=== PATIENT | female | born 1950 | race Hispanic/Latino ===

== ENCOUNTER 2018-07-06 14:47 | Inpatient (IN) | payer OTHER ==
[2018-07-06] MEDS ORDERED: NA CHLORIDE 0.9% 2,000 ML ONE (15:47)
[2018-07-06] MEDS ORDERED: FENTANYL CITR 100 MCG/2 ML ONE ×3 (15:47→21:02)
[2018-07-06] MEDS ORDERED: ONDANSETRON 4 MG/2 ML VIAL ONE ×2 (15:47→17:20)
[2018-07-06 16:34] LABS: Absolute Lymphocytes (CBC) 0.6 K/uL (0.7-4.9); Absolute Monocytes 0.7 K/uL (0.1-1.3); Absolute Neutrophil 9.6 K/uL (1.8-8.0); Basophils % 0.3 % (0-1.3); Eosinophils % 0.4 % (0-4.4); Hematocrit 51.3 % (36.0-45.0); Lymphocytes % 5.4 % (15.3-44.8); MPV 8.8 fL (7.6-11.3); RBC Red Blood Cell Count 5.73 M/uL (3.86-4.86)
--- NOTE | 2018-07-06 16:38 | RAD REPORT ---
EXAM DESCRIPTION: RAD - Chest Single View - 07/06/2018 4:32 pm CLINICAL HISTORY: SWELLING Chest pain. COMPARISON: No comparisons FINDINGS: Portable technique limits examination quality. The lungs are grossly clear. The heart is mildly prominent in size. No displaced fractures.Aorta is m ildly tortuous and atherosclerotic. IMPRESSION: No acute intrathoracic process suspected.
[2018-07-06 16:40] LABS: Protime INR 1.26
[2018-07-06 16:53] LABS: Urine Bacteria 20-50 /HPF (<20); Urine Culture Reflex Order REFLEXED; Urine Mucus 2+ /HPF (NONE SEEN); Urine RBC 20-50 /HPF (NONE SEEN)
[2018-07-06 16:54] LABS: Urine Blood 3+ (NEG); Urine Glucose NEGATIVE (NEG); Urine Protein 2+ (NEG); Urine pH 5.5 (5.0-7.0)
[2018-07-06 17:07] LABS: Anisocytosis SLIGHT; Blood Morphology Comment NOTED (NOT SEEN); Platelet Estimate ADEQ; Urine White Blood Cell Casts OK
[2018-07-06 17:58] LABS: Albumin 2.8 g/dL (3.4-5.0); Bilirubin Direct 0.9 mg/dL (0-0.2); Bilirubin Total 1.2 mg/dL (0.2-1.0); Magnesium 2.7 mg/dL (1.8-2.4); Protein, Total 8.7 g/dL (6.4-8.2); Troponin (Emerg Dept Use Only) 0.05 ng/mL (0.0-0.045)
[2018-07-06 18:10] LABS: Potassium 5.9 mmol/L (3.5-5.1)
--- NOTE | 2018-07-06 18:25 | EKG ---
Test Date: 2018-07-06 Test Time: 16:29:54 Turning Machine Operator Helper: YOBANI MEASUREMENT RESULTS: Intervals: Rate: 104 WY: 168 QRSD: 104 QT: 340 QTc: 447 [place]: P: -17 WY: 168 QRS: 53 T: 66 INTERPRETIVE STATEMENTS: Sinus tachycardia Septal infarct, age undetermined Abnormal ECG Compared to ECG 12/11/1994 21:07:00 Myocardial infarct finding now present Sinus rhythm no longer present ST (T wave) deviation no longer present Electronically Signed On 07-06-18 18:24:34 VETERINARY NURSE by Donavon Cornell
[2018-07-06] MEDS ORDERED: MEPERIDINE HCL 25 MG/0.5 ML ONE (19:05)
[2018-07-06] MEDS ORDERED: FUROSEMIDE 20 MG/ 2ML VIAL ONE (19:05)
[2018-07-06] MEDS ORDERED: ALBUTEROL 2.5 MG/3 ML NEB SOL ONE (19:08)
[2018-07-06] MEDS ORDERED: INSULIN -REGULAR HUMAN 50 UNIT/0.5 ML ML ONE (19:08)
[2018-07-06] MEDS ORDERED: SOD BICARB 8.4% PEDI 10 mEq/10 mL SYR IVP ONE (19:09)
[2018-07-06] MEDS ORDERED: VANCOMYCIN 1 GM/250 ML BAG ONE (19:09)
--- NOTE | 2018-07-06 20:04 | EDPHYS ---
Physician Documentation [facility] Name: Florencia Schilling Age: 67 yrs Sex: Female : 1950 Arrival Date: 07/06/2018 Time: 14:50 Bed 23 Private MD: ED Physician Ulises Joyce HPI: 07/06 15:35 This 67 yrs old Female presents to ER via Wheelchair with complaints of Leg cp Swelling, Feet Swelling, Back Pain. 15:35 The patient presents with pain that is acute, with no known mechanism of injury. cp 15:35 The patient presents with pain, swelling, tenderness. The complaints affect the right cp leg and left leg. Onset: The symptoms/episode began/occurred at an unknown time. 15:35 Associated signs and symptoms: Pertinent positives: swelling, warmth, weakness, cp Pertinent negatives fever. Treatment prior to arrival includes: no previous treatment. Historical: - Allergies: 15:20 petroleum containing products; ph - Home Meds: 15:20 insulin [Active]; ph - PMHx: 15:20 Diabetes - IDDM; Myocardial infarction; MCS; ph - PSHx: 15:20 back; Hysterectomy; Cholecystectomy; Appendectomy; ph - Immunization history:: Adult Immunizations unknown. - Social history:: Smoking status: Patient/guardian denies using tobacco. - Ebola Screening: : No symptoms or risks identified at this time. ROS: 15:38 Constitutional: Negative for body aches, chills, fever, poor PO intake. cp 15:38 Eyes: Negative for injury, pain, redness, and discharge. cp 15:38 ENT: Negative for drainage from ear(s), ear pain, sore throat, difficulty swallowing, difficulty handling secretions. 15:38 Cardiovascular: Positive for edema, Negative for chest pain, palpitations. 15:38 Respiratory: Positive for shortness of breath, at rest. Negative for cough, wheezing. 15:38 Abdomen/GI: Negative for abdominal pain, nausea, vomiting, and diarrhea, constipation, black/tarry stool, rectal bleeding. 15:38 Skin: Positive for cellulitis, rash, of the right leg and left leg. 15:38 Neuro: Negative for altered mental status, headache. 15:38 All other systems are negative. Exam: 15:45 Constitutional: The patient appears in no acute distress, alert, awake, cp non-diaphoretic, non-toxic, well developed, well nourished, obese. 15:45 Head/Face: Normocephalic, atraumatic. cp 15:45 Eyes: Periorbital structures: appear normal, Conjunctiva: normal, no exudate, no cp injection, Sclera: no appreciated abnormality, Lids and lashes: appear normal, bilaterally. 15:45 ENT: External ear(s): are unremarkable, Nose: is normal, Mouth: Lips: moist, Oral cp mucosa: pink and intact, moist, Posterior pharynx: is normal, airway is patent, no erythema, no exudate, Voice: is normal. 15:45 Chest/axilla: Inspection: normal, Palpation: is normal, no crepitus, no tenderness. 15:45 Cardiovascular: Rate: normal, Rhythm: regular, Edema: pedal edema, that is mild, JVD: is not appreciated. 15:45 Respiratory: the patient does not display signs of respiratory distress, Respirations: normal, no use of accessory muscles, no retractions, no splinting, no tachypnea, labored breathing, is not present, Breath sounds: decreased breath sounds, that are mild, are located in both bases, stridor, is not appreciated. 15:45 Abdomen/GI: Inspection: obese Bowel sounds: active, all quadrants, Palpation: abdomen is soft and non-tender, in all quadrants. 15:45 Skin: cellulitis, that is severe, irregular, on the left leg and right leg. 15:45 Neuro: Orientation: to person, place \T\ time. Mentation: is normal, Motor: moves all fours, Gait: is unsteady. 16:35 ECG was reviewed by the Attending Physician. cp Vital Signs: 15:15 BP 99 / 59; Pulse 97; Resp 22; Temp 97.6(TE); Pulse Ox 99% on R/A; ph 18:02 BP 125 / 53; Pulse 98; Resp 14; Temp 97.5; Pulse Ox 100% on R/A; ag4 19:33 BP 109 / 52; Pulse 58; Resp 18; Pulse Ox 100% ; tl3 21:06 BP 105 / 68; Pulse 95; Resp 18; Pulse Ox 98% ; tl3 MDM: 15:00 Patient medically screened. cp 16:00 Differential diagnosis: DVT, cellulitis, sepsis. cp 19:30 Physician consultation: Agusto Alves MD was contacted at 19:30, regarding admission, cp to the medical/surgical unit. patient's condition, and will see patient in ED, shortly. 19:50 Data reviewed: vital signs, nurses notes, lab test result(s), EKG, radiologic studies, cp plain films, ultrasound. 19:50 Test interpretation: by ED physician or midlevel provider: ECG, plain radiologic cp studies. Response to treatment: the patient's symptoms have mildly improved after treatment. 07/06 15:32 Order name: Urine Microscopic Only; Complete Time: 16:55 cp 07/06 17:42 Interpretation: Normal except: UWBC 20-50; URBC 20-50; UBACT 20-50; SQEPI 10-20. 07/06 15:32 Order name: Wound Culture 07/06 15:32 Order name: Basic Metabolic Panel; Complete Time: 18:15 07/06 19:22 Interpretation: Normal except: NA 129; K 5.9; CO2 17; GLUC 333; BUN 73; CRE 2.30; GFR cp 21. 07/06 15:32 Order name: CBC with Diff; Complete Time: 17:16 cp 07/06 17:16 Interpretation: Normal except: RBC 5.73; HGB 16.9; HCT 51.3; RDW 18.1; GALILEA% 87.9; LYM% cp 5.4; NEUT A 9.6; LYMA 0.6. 07/06 15:32 Order name: LFT's; Complete Time: 18:15 cp 07/06 19:22 Interpretation: ALK 166; BILIT 1.2; BILID 0.9; TP 8.7; ALB 2.8; GLOB 5.9; A/G 0.5. cp 07/06 15:32 Order name: Magnesium; Complete Time: 18:15 cp 07/06 15:32 Order name: NT PRO-BNP; Complete Time: 18:15 cp 07/06 15:32 Order name: PT-INR; Complete Time: 16:55 cp 07/06 15:32 Order name: Troponin (emerg Dept Use Only); Complete Time: 18:15 cp 07/06 18:15 Interpretation: Abnormal: TROPED 0.05. cp 07/06 15:32 Order name: Procalcitonin; Complete Time: 17:16 07/06 15:32 Order name: Lactate; Complete Time: 16:55 07/06 17:42 Interpretation: Abnormal: LAC 2.9. 07/06 15:32 Order name: Blood Culture Adult (2) 07/06 16:27 Order name: Urine Dipstick--Ancillary (enter results); Complete Time: 17:16 07/06 15:32 Order name: XRAY Chest (1 view); Complete Time: 16:55 07/06 16:55 Order name: Urine Culture EDMA 07/06 16:56 Order name: US Extremity Venous W Compression Ag 07/06 17:07 Order name: CBC Smear Scan; Complete Time: 17:16 [facility] 07/06 19:38 Order name: Lactate Sepsis 2 HR Follow-up; Complete Time: 19:46 [facility] 07/06 15:32 Order name: Urine Dipstick-Ancillary (obtain specimen); Complete Time: 16:33 07/06 15:32 Order name: Accucheck Blood Glucose; Complete Time: 16:33 07/06 15:32 Order name: EKG; Complete Time: 15:34 07/06 15:32 Order name: Cardiac monitoring; Complete Time: 16:32 07/06 15:32 Order name: EKG - Nurse/Tech; Complete Time: 16:32 07/06 15:32 Order name: IV Saline Lock; Complete Time: 16:32 07/06 15:32 Order name: Labs collected and sent; Complete Time: 16:32 07/06 15:32 Order name: O2 Per Protocol; Complete Time: 16:32 07/06 15:32 Order name: O2 Sat Monitoring; Complete Time: 16:33 07/06 16:46 Order name: Labs - recollect needed; Complete Time: 18:11 07/06 18:18 Order name: Accucheck Blood Glucose: recheck every hour times 2; Complete Time: 19:15 cp EC:35 Rate is 104 beats/min. Rhythm is regular. OH interval is normal. QRS interval is cp prolonged at 104 msec. QT interval is normal. T waves are Inverted in lead aVL. Interpreted by me. Reviewed by me. Administered Medications: 15:45 Drug: fentaNYL (PF) 50 mcg Route: IVP; Infused Over: 2 mins; Site: right antecubital; tl3 16:34 Follow up: Response: Pain is decreased tl3 15:45 Drug: Zofran 4 mg Route: IVP; Infused Over: 2 mins; Site: right antecubital; tl3 16:34 Follow up: Response: No adverse reaction tl3 17:04 Drug: NS 0.9% 500 ml Route: IV; Rate: bolus; Site: right antecubital; Delivery: Primary tl3 tubing; 19:16 Follow up: IV Status: Completed infusion; IV Intake: 500ml tl3 19:14 Drug: vancoMYCIN 1 grams Route: IVPB; Infused Over: 2 hrs; Site: right antecubital; tl3 Delivery: Primary tubing; 21:04 Follow up: IV Status: Infusion continued upon admission tl3 19:15 Drug: Insulin Regular Human 10 units {Co-Signature: jd3 (Venkat Greenfield RN).} Route: tl3 IVP; Site: right antecubital; 21:04 Follow up: Response: No adverse reaction tl3 19:16 Drug: Albuterol 2.5 mg Route: Inhalation; tl3 19:16 Drug: Sodium Bicarbonate 1 amp Route: IVP; Infused Over: 2 mins; Site: right tl3 antecubital; 19:37 Follow up: Response: No adverse reaction tl3 19:20 Drug: NS 0.9% 500 ml Route: IV; Rate: bolus; Site: right antecubital; Delivery: Primary tl3 tubing; 20:59 Follow up: IV Status: Completed infusion; IV Intake: 500ml tl3 19:38 Drug: fentaNYL (PF) 50 mcg Route: IVP; Infused Over: 1 mins; Site: right antecubital; tl3 19:40 Follow up: Response: Pain is decreased tl3 19:39 Drug: Demerol 15 mg Route: IVP; Infused Over: 1 mins; Site: right antecubital; tl3 19:39 Follow up: Response: Pain is unchanged, physician notified tl3 19:53 Drug: fentaNYL (PF) 50 mcg Route: IVP; Infused Over: 2 mins; Site: right antecubital; tl3 20:16 Follow up: Response: Pain is unchanged, physician notified tl3 19:54 Drug: Albuterol 2.5 mg Route: Inhalation; tl3 20:26 Drug: Albuterol 2.5 mg Route: Inhalation; tl3 20:26 Drug: TORadol 30 mg Route: IVP; Infused Over: 2 mins; Site: right antecubital; tl3 20:58 Follow up: Response: Pain is unchanged, physician notified tl3 20:26 Drug: NS 0.9% 1000 ml Route: IV; Rate: 1 bolus; Site: right antecubital; Delivery: tl3 Primary tubing; 21:01 Follow up: IV Status: Infusion continued upon admission tl3 20:58 Drug: fentaNYL (PF) 50 mcg Route: IVP; Site: right antecubital; tl3 21:01 Follow up: Response: Pain is decreased tl3 21:03 Not Given (Vancomycin administering, Zosyn set to floor): Zosyn 3.375 grams IVPB once tl3 over 60 mins; (mix in NS 100 mL) 21:04 Not Given (not available in ED): Kayexalate 30 grams PO once tl3 Point of Care Testing: Blood Glucose: 16:33 Blood Glucose: 284 mg/dL; tl3 18:50 Blood Glucose: 258 mg/dL; ag4 Ranges: Critical Glucose Levels:Adult <50 mg/dl or >400 mg/dl <40 mg/dl or >180 mg/dl Disposition: 07/07 09:34 Co-signature as Attending Physician, Ulises Joyce MD. Disposition: 07/06/18 20:02 Hospitalization ordered by Agusto Alves for Inpatient Admission. Preliminary diagnosis are Cellulitis of left lower limb, Cellulitis of right lower limb, Acute kidney failure, Urinary tract infection, site not specified, Hyperkalemia. - Bed requested for Telemetry/MedSurg (Inpatient). - Status is Inpatient Admission. jd3 - Condition is Stable. - Problem is new. - Symptoms have improved. UTI on Admission? Yes Signatures: Dispatcher [employer] EDMS Sonia Decker Kimberly, RN RN kl Hall, Patricia, RN RN ph Page, Corey, PA PA cp Starr, Gregory, MD MD Venkat Greenfield RN RN jd3 Erika Bajwa RN RN tl3 Venkat angeles Corrections: (The following items were deleted from the chart) 07/06 17:07 16:38 Manual Differential ordered. EDMS EDMS 20:22 20:02 Hospitalization Ordered by Agusto Alves MD for Inpatient Admission. Preliminary kl diagnosis is Cellulitis of left lower limb; Cellulitis of right lower limb; Acute kidney failure; Urinary tract infection, site not specified. Bed requested for Telemetry/MedSurg (Inpatient). Status is Inpatient Admission. Condition is Stable. Problem is new. Symptoms have improved. UTI on Admission? Yes. cp 21:04 19:00 Lower Extremity Arterial Bilat+US.RAD.BRZ ordered. [facility] 21:21 20:22 07/06/2018 20:02 Hospitalization Ordered by Agusto Alves MD for Inpatient cp Admission. Preliminary diagnosis is Cellulitis of left lower limb; Cellulitis of right lower limb; Acute kidney failure; Urinary tract infection, site not specified. Bed requested for Telemetry/MedSurg (Inpatient). Status is Inpatient Admission. Condition is Stable. Problem is new. Symptoms have improved. UTI on Admission? Yes. kl 21:46 21:21 07/06/2018 20:02 Hospitalization Ordered by Agusto Alves MD for Inpatient jd3 Admission. Preliminary diagnosis is Cellulitis of left lower limb; Cellulitis of right lower limb; Acute kidney failure; Urinary tract infection, site not specified; Hyperkalemia. Bed requested for Telemetry/MedSurg (Inpatient). Status is Inpatient Admission. Condition is Stable. Problem is new. Symptoms have improved. UTI on Admission? Yes. cp 07/07 19:25 07/06 15:35 The symptoms are located in the left subscapular area and left mid back, cp cp
--- NOTE | 2018-07-06 20:04 | ER ---
Nurse's Notes [facility] Name: Florencia Schilling Age: 67 yrs Sex: Female : 1950 Arrival Date: 07/06/2018 Time: 14:50 Bed 23 Private MD: Diagnosis: Cellulitis of left lower limb;Cellulitis of right lower limb;Acute kidney failure;Urinary tract infection, site not specified;Hyperkalemia Presentation: 07/06 15:11 Presenting complaint: Patient states: C/O shingles rash to buttocks, ag leg swelling, ph SOB, unable to lie flat, hx of IDDM, ag legs noted to red and swollen w/ weeping wounds to ag shins and ag toes, denies fever, N/V/D, daughter states, " She hasn't been to the doctor for over 5 years.". Transition of care: patient was not received from another setting of care. Onset of symptoms was July 06, 2018. Risk Assessment: Do you want to hurt yourself or someone else? Patient reports no desire to harm self or others. Initial Sepsis Screen: Does the patient meet any 2 criteria? HR > 90 bpm. Does the patient have a suspected source of infection? Yes: Skin breakdown/wound. Care prior to arrival: None. 15:11 Method Of Arrival: Wheelchair ph 15:11 Acuity: TEAGAN 2 ph Historical: - Allergies: 15:20 petroleum containing products; ph - Home Meds: 15:20 insulin [Active]; ph - PMHx: 15:20 Diabetes - IDDM; Myocardial infarction; MCS; ph - PSHx: 15:20 back; Hysterectomy; Cholecystectomy; Appendectomy; ph - Immunization history:: Adult Immunizations unknown. - Social history:: Smoking status: Patient/guardian denies using tobacco. - Ebola Screening: : No symptoms or risks identified at this time. Screenin:25 Abuse screen: Denies threats or abuse. Nutritional screening: No deficits noted. tl3 Tuberculosis screening: No symptoms or risk factors identified. Fall Risk None identified. Assessment: 15:04 General: Appears in no apparent distress. uncomfortable, well groomed, well developed, sg well nourished, Behavior is calm, cooperative, appropriate for age. Pain: Complains of pain in back, right leg and left leg Quality of pain is described as tender, throbbing. Neuro: Level of Consciousness is awake, alert, obeys commands, Oriented to person, place, time, Airplane First Officer are equal bilaterally Speech is normal. Cardiovascular: Heart tones S1 S2 present Patient's skin is warm and dry. Chest pain is denied. Respiratory: Airway is patent Respiratory effort is even, unlabored, Respiratory pattern is regular, symmetrical. GI: Abdomen is round non-distended, obese. : No signs and/or symptoms were reported regarding the genitourinary system. EENT: No signs and/or symptoms were reported regarding the EENT system. Derm: Skin is mottled, red, blisters, areas of skin that are weeping with purulent and serosanguinous drainage. Derm: Skin is fragile, is thin, has blisters on BLE. Musculoskeletal: Circulation, motion, and sensation intact. Range of motion: intact in all extremities, Swelling present in right leg and left leg. 16:25 Reassessment: Patient and/or family updated on plan of care and expected duration. Pain tl3 level reassessed. Patient is alert, oriented x 3, equal unlabored respirations, skin warm/dry/pink. pt has been slowly moved to bed, morbidly obese and in considerable pain, urine collected, IV started and blood work sent to lab, Zofran and Fentanyl administered. 17:09 Reassessment: Patient and/or family updated on plan of care and expected duration. Pain sg level reassessed. lab and ultrasound at bedside at this time. 18:48 Reassessment: pt placed on [employer]affel Air Matress for comfort, pt reports feeling better at sg this time. 19:33 Reassessment: Patient and/or family updated on plan of care and expected duration. Pain tl3 level reassessed. Patient is alert, oriented x 3, equal unlabored respirations, skin warm/dry/pink. pt was in extreme pain again, Provider notified and orders obtained, pt repositioned, blankets cleaned up and waffle mattress applied, 16 fr cath placed with urine return. 19:54 Reassessment: pt crying out again in pain. tl3 21:06 Reassessment: Patient and/or family updated on plan of care and expected duration. Pain tl3 level reassessed. Patient is alert, oriented x 3, equal unlabored respirations, skin warm/dry/pink. pt remains uncomfortable, has been repositioned several times with pillows between leg, and back. 21:07 Reassessment: report given to Mo GÓMEZ. jd3 Vital Signs: 15:15 BP 99 / 59; Pulse 97; Resp 22; Temp 97.6(TE); Pulse Ox 99% on R/A; ph 18:02 BP 125 / 53; Pulse 98; Resp 14; Temp 97.5; Pulse Ox 100% on R/A; ag4 19:33 BP 109 / 52; Pulse 58; Resp 18; Pulse Ox 100% ; tl3 21:06 BP 105 / 68; Pulse 95; Resp 18; Pulse Ox 98% ; tl3 ED Course: 14:50 Patient arrived in ED. as 15:00 Cody Villeda PA is PHCP. cp 15:00 Ulises Joyce MD is Attending Physician. cp 15:03 Xavier De León, RICO is Primary Nurse. sg 15:15 Triage completed. ph 15:20 Arm band placed on Patient placed in an exam room, in a wheelchair, on pulse oximetry. ph 15:55 Radiology exam delayed due to IV insertion attempt and/or patient not having ag1 appropriate IV at this time. 16:25 Placed in gown. Bed in low position. Call light in reach. Side rails up X2. Adult w/ tl3 patient. Pulse ox on. NIBP on. Warm blanket given. Verbal reassurance given. Turned to left side. Assisted to bedside commode. 16:25 One-on-one care X 60 minutes. tl3 16:25 Assisted with moving pt from wheelchair to bed for exam. Initial lab(s) drawn, by dc, tl3 sent to lab. Urine collected: clean catch specimen, EKG done, Wound culture swab sent to lab. X-ray(s) taken. Inserted saline lock: 20 gauge in right antecubital area, using aseptic technique. Blood collected. 16:29 XRAY Chest (1 view) In Process Unspecified. EDMS 16:37 EKG done, by cath lab technologist. reviewed by Cody FERRARA. sm3 17:05 Urine Culture Sent. tl3 17:11 Erika Bajwa, RN is Primary Nurse. sg 17:51 Ultrasound completed. Notified BLOWER BLAST FURNACE/ALEM VILLEDA. aa4 18:11 US Extremity Venous W Compression Ag Sent. tl3 18:17 Extremity Venous W Compression Ag In Process Unspecified. EDMS 19:33 Initial Neb Treatment Given as ordered Patient tolerated procedure well without adverse tl3 effect. Hernandez cath inserted, using sterile technique, 16 Fr., by me, balloon inflated. 19:51 Note: u/S attempted . pt and family refused exam at this time , cody page notified. aa4 20:01 Agusto Alves MD is Hospitalizing Provider. cp 21:06 Patient admitted, IV remains in place. tl3 Administered Medications: 15:45 Drug: fentaNYL (PF) 50 mcg Route: IVP; Infused Over: 2 mins; Site: right antecubital; tl3 16:34 Follow up: Response: Pain is decreased tl3 15:45 Drug: Zofran 4 mg Route: IVP; Infused Over: 2 mins; Site: right antecubital; tl3 16:34 Follow up: Response: No adverse reaction tl3 17:04 Drug: NS 0.9% 500 ml Route: IV; Rate: bolus; Site: right antecubital; Delivery: Primary tl3 tubing; 19:16 Follow up: IV Status: Completed infusion; IV Intake: 500ml tl3 19:14 Drug: vancoMYCIN 1 grams Route: IVPB; Infused Over: 2 hrs; Site: right antecubital; tl3 Delivery: Primary tubing; 21:04 Follow up: IV Status: Infusion continued upon admission tl3 19:15 Drug: Insulin Regular Human 10 units {Co-Signature: jd3 (Venkat Greenfield RN).} Route: tl3 IVP; Site: right antecubital; 21:04 Follow up: Response: No adverse reaction tl3 19:16 Drug: Albuterol 2.5 mg Route: Inhalation; tl3 19:16 Drug: Sodium Bicarbonate 1 amp Route: IVP; Infused Over: 2 mins; Site: right tl3 antecubital; 19:37 Follow up: Response: No adverse reaction tl3 19:20 Drug: NS 0.9% 500 ml Route: IV; Rate: bolus; Site: right antecubital; Delivery: Primary tl3 tubing; 20:59 Follow up: IV Status: Completed infusion; IV Intake: 500ml tl3 19:38 Drug: fentaNYL (PF) 50 mcg Route: IVP; Infused Over: 1 mins; Site: right antecubital; tl3 19:40 Follow up: Response: Pain is decreased tl3 19:39 Drug: Demerol 15 mg Route: IVP; Infused Over: 1 mins; Site: right antecubital; tl3 19:39 Follow up: Response: Pain is unchanged, physician notified tl3 19:53 Drug: fentaNYL (PF) 50 mcg Route: IVP; Infused Over: 2 mins; Site: right antecubital; tl3 20:16 Follow up: Response: Pain is unchanged, physician notified tl3 19:54 Drug: Albuterol 2.5 mg Route: Inhalation; tl3 20:26 Drug: Albuterol 2.5 mg Route: Inhalation; tl3 20:26 Drug: TORadol 30 mg Route: IVP; Infused Over: 2 mins; Site: right antecubital; tl3 20:58 Follow up: Response: Pain is unchanged, physician notified tl3 20:26 Drug: NS 0.9% 1000 ml Route: IV; Rate: 1 bolus; Site: right antecubital; Delivery: tl3 Primary tubing; 21:01 Follow up: IV Status: Infusion continued upon admission tl3 20:58 Drug: fentaNYL (PF) 50 mcg Route: IVP; Site: right antecubital; tl3 21:01 Follow up: Response: Pain is decreased tl3 21:03 Not Given (Vancomycin administering, Zosyn set to floor): Zosyn 3.375 grams IVPB once tl3 over 60 mins; (mix in NS 100 mL) 21:04 Not Given (not available in ED): Kayexalate 30 grams PO once tl3 Point of Care Testing: Blood Glucose: 16:33 Blood Glucose: 284 mg/dL; tl3 18:50 Blood Glucose: 258 mg/dL; ag4 Ranges: Intake: 19:16 IV: 500ml; Total: 500ml. tl3 20:59 IV: 500ml; Total: 1000ml. tl3 Output: 16:25 Urine: 20ml (Voided); Total: 20ml. tl3 Outcome: 20:02 Decision to Hospitalize by Provider. cp 21:11 Admitted to Tele accompanied by nurse, via stretcher, with chart. tl3 21:11 Condition: stable 21:11 Instructed on the need for admit. 21:46 Patient left the ED. jd3 Signatures: Dispatcher [employer] EDMS Xavier De León, RN RN sg Sumanth, Marion Nolasco, Juanita aa4 Melyssa Gillis, R[place] RN Jade, Suzanne ag1 Cody Villeda PA PA cp Davies, RICO Robledo RN jd3 Erika Bajwa RN RN tl3 Adolfo, Maxine 3 Manny, Mor ag4 Venkat Greenfield RN jd3
--- NOTE | 2018-07-06 20:07 | RAD REPORT ---
EXAM DESCRIPTION: US - Extrem Venous W Compress Ag - 07/06/2018 7:48 pm CLINICAL HISTORY: Pain;Swelling Bilateral leg edema and swelling. COMPARISON: No comparisons TECHNIQUE: Real-time sonographic interrogation of the left and right lower extremity deep venous sys tems was performed. FINDINGS: Normal compressibility, flow augmentation, phasic flow and spontaneous flow is identified in both the left and right lower extremity deep venous systems. IMPRESSION: No sonographic evidence of left or right lower extremity deep venous thrombosis.
--- NOTE | 2018-07-06 20:22 | P.HP ---
Certification for Inpatient Patient admitted to: Inpatient With expected LOS: >2 Midnights Practitioner: I am a practitioner with admitting privileges, knowledge of patient current condition, hospital course, and medical plan of care. Services: Services provided to patient in accordance with Admission requirements found in Title 42 Section 412.3 of the Code of Federal Regulations Patient History Date of Service: 07/06/18 Reason for admission: cellulitis, acute renal failure, volume depletion History of Present Illness: Ms Schilling is a 67 years old woman with history of CAD, IDDM, chronic lower extremity edema, mostly bed bound, who start about 1 month ago with bilateral lower exrermity ulcerative wounds. Over the time, the wounds were getting larger and painfull. No history of fever or chills. Today, she was brought by her family because the pain was severe. She has yellowish secretion from the wounds, foul odor and bilateral erythema. Lab work shows normal WBC, elevated lactate and normal procalcitonin. Creatinine elevated, low sodium and hyperglycemia. No signs of DKA. Her potassium was elevated as well. Bilateral venous doppler shows no DVT. She is afebrile and hemodynamically stable. Home medications list reviewed: Yes - Past Medical/Surgical History -: DM II -: CAD -: obesity -: back -: hysterectomy -: cholecystectomy -: appendectomy - Family History Family History: Reviewed- Non-Contributory - Social History Smoking Status: Never smoker Alcohol use: No CD- Drugs: No Place of Residence: Home Review of Systems 10-point ROS is otherwise unremarkable Physical Examination - Physical Exam General: Alert, In no apparent distress HEENT: Atraumatic, PERRLA, Other (dry mucous membranes), EOMI, Sclerae nonicteric Neck: Supple, 2+ carotid pulse no bruit, No LAD, Without JVD or thyroid abnormality Respiratory: Clear to auscultation bilaterally, Normal air movement Cardiovascular: Regular rate/rhythm, Normal S1 S2 Gastrointestinal: Normal bowel sounds, No tenderness Musculoskeletal: No tenderness Integumentary: Other (bilateral ulcerative lesions in bilateral lower extremities with yellowis secretion and erythema around.) Neurological: Normal speech, Normal strength at 5/5 x4 extr, Normal tone, Normal affect Lymphatics: No axilla or inguinal lymphadenopathy - Studies Laboratory Data (last 24 hrs) 07/06/18 17:08: Sodium 129 L, Potassium 5.9 H*, BUN 73 H, Creatinine 2.30 H, Glucose 333 H, Magnesium 2.7 H, Total Bilirubin 1.2 H, AST 26, ALT 21, Alkaline Phosphatase 166 H 07/06/18 16:00: PT 14.9 H, INR 1.26 07/06/18 16:00: WBC 10.9, Hgb 16.9 H, Hct 51.3 H, Plt Count 382 Assessment and Plan - Problems (Diagnosis) (1) Diabetes mellitus Current Visit: Yes Status: Acute Qualifiers: Diabetes mellitus type: type 2 Diabetes mellitus skilled nursing insulin use: with skilled nursing use Diabetes mellitus complication status: with skin complications Diabetes mellitus complication detail: with other skin ulcer Qualified Code(s): E11.622 - Type 2 diabetes mellitus with other skin ulcer; Z79.4 - prison (current) use of insulin (2) Cellulitis Current Visit: Yes Status: Acute Qualifiers: Site of cellulitis: extremity Site of cellulitis of extremity: lower extremity Laterality: unspecified laterality Qualified Code(s): L03.119 - Cellulitis of unspecified part of limb (3) Acute renal injury Current Visit: Yes Status: Acute (4) Hyperkalemia Current Visit: Yes Status: Acute (5) Hyponatremia Current Visit: Yes Status: Acute (6) CAD (coronary artery disease) Current Visit: Yes Status: Acute Qualifiers: Coronary Disease-Associated Artery/Lesion type: [place] artery [place] vs. transplanted heart: [place] heart Associated angina: without angina Qualified Code(s): I25.10 - Atherosclerotic heart disease of [place] coronary artery without angina pectoris - Plan 1) Cellulitis: bilateral lower extremity cellulitis with ulcerative lesions in both legs. Will order wound culture, wound care, IV broad spectrum antibiotics. 2) IDDM: seems to be uncontrolled. Will order HgbA1c, SSI for BS control. 3) acute renal injury: no previous renal panel in records to compare. Will order IV fluids, consult nephrology. 4) hyperkalemia: will order kayexalate, sodium bicarbonate, calcium gluconate, check potassium level very close. - Advance Directives Does patient have a Living Will: No Does patient have a Durable POA for Healthcare: No - Code Status/Comfort Care Code Status Assessed: Yes Code Status: Full Code
[2018-07-06] MEDS ORDERED: NA CHLORIDE 0.9% 1,000 ML ONE (20:28)
[2018-07-06] MEDS ORDERED: KETOROLAC 30 MG/ML INJ ONE (20:28)
[2018-07-06] MEDS ORDERED: SOD POLYSTYREN SUL 15 GM/60 ML UCUP PO ONE (20:31)
[2018-07-06] MEDS ORDERED: PIPER/TAZO/NS 3.375gm 3.375 GM/100 ML BAG ONE (21:11)
[2018-07-06] MEDS ORDERED: ONDANSETRON 4 MG/2 ML VIAL IV PRN (22:07)
[2018-07-06] MEDS: HEPARIN 5000 UNIT/ML 1 ML VIAL SQ SCH (22:07)
[2018-07-06] MEDS: HYDROMORPHONE HCL 1 MG/ML INJ IV PRN (22:29)
[2018-07-07] MEDS: NA CHLORIDE 0.9% 1,000 ML IV SCH ×4 (01:00→20:30)
[2018-07-07] MEDS: PIPER/TAZO/NS 2.25gm 2.25 GM/50 ML BAG IVPB SCH ×3 (01:00→16:33)
[2018-07-07] MEDS ORDERED: INSULIN -REGULAR HUMAN 50 UNIT/0.5 ML ML IV ONE (02:13)
[2018-07-07] MEDS ORDERED: D50W 25 GM/50 ML SYRINGE IV ONE (02:13)
[2018-07-07] MEDS: HYDROMORPHONE HCL 1 MG/ML INJ IV PRN ×5 (03:20→20:30)
[2018-07-07] MEDS: VANCOMYCIN 2 GM in NA CHLORIDE 0.9% 500 ML IVPB SCH (04:00)
[2018-07-07] MEDS ORDERED: VANCOMYCIN 1 GM/VIAL ONE (05:37)
[2018-07-07] MEDS ORDERED: NA CHLORIDE 0.9% 250 ML ONE (05:38)
[2018-07-07] MEDS: INSULIN -REGULAR HUMAN 50 UNIT/0.5 ML ML SQ SCH ×5 (08:02→20:32)
[2018-07-07 08:14] LABS: Absolute Lymphocytes (CBC) 0.6 K/uL (0.7-4.9); Absolute Monocytes 1.2 K/uL (0.1-1.3); Absolute Neutrophil 13.1 K/uL (1.8-8.0); Basophils % 0.2 % (0-1.3); Eosinophils % 0.3 % (0-4.4); Hematocrit 47.9 % (36.0-45.0); Lymphocytes % 4.3 % (15.3-44.8); Monocytes % 8.3 % (3.3-12.3); RBC Red Blood Cell Count 5.37 M/uL (3.86-4.86)
[2018-07-07 08:28] LABS: Potassium 5.2 mmol/L (3.5-5.1)
[2018-07-07] MEDS: HEPARIN 5000 UNIT/ML 1 ML VIAL SQ SCH ×2 (09:25→20:39)
[2018-07-07] MEDS ORDERED: SOD POLYSTYREN SUL 15 GM/60 ML UCUP PO ONE ×2 (09:46→21:00)
[2018-07-07] MEDS ORDERED: GABAPENTIN 100 MG CAP PO PRN (09:46)
[2018-07-07] MEDS ORDERED: D50W 25 GM/50 ML SYRINGE IV PRN (09:51)
[2018-07-07] MEDS ORDERED: GLUCAGON 1 MG/VIAL IM PRN (09:51)
--- NOTE | 2018-07-07 09:56 | P.PN ---
Subjective Date of Service: 07/07/18 Primary Care Provider: none Chief Complaint: cellulitis, acute renal failure, volume depletion Subjective: Other (Patient resting in bed reports pain to the lower extremities. Family at bedside. Family reports patient is not seen physician in quite some time. Patient with diabetes, heart disease and chronic renal disease. She has not been taking any medication in quite some time.) Physical Examination - Vital Signs Temperature: 97 F Blood Pressure: 119/50 Pulse: 97 Respirations: 20 Pulse Ox (%): 96 - Physical Exam General: Alert, In no apparent distress, Cooperative HEENT: Atraumatic, Other (Dry mucous membranes) Neck: Supple Respiratory: Clear to auscultation bilaterally, Normal air movement Cardiovascular: Normal pulses, Regular rate/rhythm Gastrointestinal: Normal bowel sounds, Soft and benign, Non-distended, No tenderness, No masses, No rebound, No guarding Musculoskeletal: Tenderness (Tenderness to the lower extremities with palpation) Integumentary: Tenderness/swelling (Mild edema to the lower extremities bilateral but improved.), Erythema (Erythema bilateral to the lower extremities below the knee with exudate noted to the feet.) Neurological: Normal speech, Normal strength at 5/5 x4 extr, Abnormal affect ( Poor affect) - Studies Laboratory Data (last 24 hrs) 07/06/18 17:08: Sodium 129 L, Potassium 5.9 H*, BUN 73 H, Creatinine 2.30 H, Glucose 333 H, Magnesium 2.7 H, Total Bilirubin 1.2 H, AST 26, ALT 21, Alkaline Phosphatase 166 H 07/06/18 16:00: PT 14.9 H, INR 1.26 07/06/18 16:00: WBC 10.9, Hgb 16.9 H, Hct 51.3 H, Plt Count 382 Assessment & Plan Discharge Plan: Other (custodial facility) Plan to discharge in: Greater than 2 days Physician Review Additional Text: Impression: Bilateral lower extremity cellulitis worse on the left than right with possible osteomyelitis of the left foot distally complicated with UTI Acute on chronic renal disease with hyperkalemia Peripheral vascular disease Diabetes mellitus type 2 Hyponatremia likely from dehydration CAD Hyperbilirubinemia likely with Fatty liver Plan: Bilateral lower extremity cellulitis worse on the left than right with possible osteomyelitis of the left foot distally complicated with UTI: Continue with IV fluids, IV antibiotic therapy-Zosyn and vancomycin. Blood, urine, wound culture obtained. Will consult surgery to assess current wound. Wound care consult to address wounds. Will check x-rays of the feet to rule out osteomyelitis. Patient may require MRI of the left foot to further evaluate. Patient to get arterial doppler to evaluate for peripheral vascular disease. Will provide medication for pain. Will get physical therapy to assess ambulation in the next 2 days. Patient would benefit with skilled placement but will determine this after infection under control. Will need to determine and rule out osteomyelitis. This was addressed in detail with patient and family present. I will turn the service over to Dr. Hurtado tomorrow. I will go over the plan of her with her. Acute on chronic renal disease with hyperkalemia: Continue with IV fluids. Kayexalate given today. Will recheck potassium level. Will also get renal ultrasound to further evaluate underlying renal disease. Nephrology consulted to further assess. Peripheral vascular disease: Patient to have arterial Doppler. Cardiology consulted to further assess. Diabetes mellitus type 2: Will check A1c. Will continue with Accu-Cheks and sliding scale. Hyponatremia likely from dehydration: Continue with IV fluids. Will monitor and address appropriately. CAD: Will provide aspirin. Will start DVT prophylaxis. Cardiology consulted to further assess. Will check echocardiogram for possible underlying CHF. Hyperbilirubinemia likely with Fatty liver: Monitor electrolytes closely. Will obtain liver ultrasound to further evaluate. Patient may have underlying liver cirrhosis. Will check for hepatitis. Time Spent Managing Pts Care (In Minutes): 55
[2018-07-07] MEDS ORDERED: NA CHLORIDE 0.9% 1,000 ML IV SCH (10:00)
--- NOTE | 2018-07-07 11:26 | CON ---
Chief Complaint: Pain in the legs. Reason For Cardiology Consult: Left arterial disease. History Of Present Illness: Mrs. Porter is 67. She has longstanding diabetes. She does not seek a r egular care from the physician, but they do give insulin based on a sliding scale to keep the blood s ugars between 80 and 130 for the most part. She has a history of coronary heart disease with stents placed in her heart in 2007. She is not on any of the usual cardiac medications. She also has a his tory of hysterectomy, cholecystectomy, appendectomy. She seems to be allergic to a lot of environmen oksana things, fragrances, dyes, and cleaning solutions that make her feel very ill. She uses no tobacc o and she has had problems with her legs for the last 5 months or so. The legs have cellulitis. Abo ut a month ago, she fell and her believes she probably broke some of the toes on her left ming t. The toes are rather purple colored, the skin on the calves and shins is reddish, thin, and atroph ic up to about the level of the knees. Medications: Outpatient medications have been insulin as the only medication. Allergies: SHE HAS NO ALLERGIES. Social History: Uses no tobacco. She prides herself I am not seeing the physician. She has been se eing the physician assistant media planner to get the prescriptions for insulin. Physical Examination: General: The patient looks chronically ill, obese, 5 feet 7 inches, 257 pounds. Lungs: Clear. Heart: Reveals a regular rate and rhythm. No gallop or murmur. Abdomen: Soft. Extremities: Very abnormal. There is mild edema. Most of the skin on the toes especially the left is starting to slough off. She has had 1 layer slough off like that there have been toxic epidermal necrolysis and the skin underneath is red and warm. There is also wrinkling. I do not feel any puls es, dorsalis pedis, or posterior tibial. The toes are purple. Venous Doppler of the legs has been d one. Arterial Doppler has not been done. Venous Doppler shows no evidence of a clot in the veins. Apparently, about 10 years ago, an arterial Doppler was done of the legs and the family was told that things were okay. Impression: The patient has probably rather severe peripheral vascular disease, severe cases of cell ulitis and some wounds on the toes. We need to get an arterial Doppler of the legs, now that she is not in pain, perhaps it could be done. She is receiving Dilaudid for the pain. She is receiving 2 a ntibiotics and local care and the wound physicians need to see her, see if she needs some debridement . She probably does an echocardiogram with Doppler should be done, also an arterial Doppler of the l egs should be done. Thank you very much for your kind referral of Mrs. Schilling. I will follow her with you. SYLVIA Voice ID: [id number] Report ID: [id number]
[2018-07-07] MEDS: FAMOTIDINE 20 MG TAB PO SCH (16:33)
[2018-07-07] MEDS ORDERED: NA CHLORIDE 0.9% 1,000 ML IV ONE (17:26)
--- NOTE | 2018-07-07 18:54 | CON ---
Date of Consultation: 07/07/2018 NEPHROLOGY CONSULTATION Additional Consulting Physician: Patel Drake DO. Reason For Consultation: Elevated BUN and creatinine, fluid management. History Of Present Illness: This is a pleasant 67-year-old female, all the information has been obta ined from the record from the hospital and the family by bedside. The patient's altered mental statu s. This is a 67-year-old female with significant past medical history of diabetes, not on any treatm ent; coronary artery disease complicated with congestive heart failure. Hep C diagnosis more than 15 years, never been treated. The patient had vague history apparently few weeks ago, had fall down. At that time, hit her chest, hurt her feet since then the patient in a chair sitting position. Then she start developing some blister in the lower extremity. Then her symptoms start getting worse and her pain get worse. For that reason, her start giving her Aleve 2 tablets to 3 tablets every 8 hours. After her condition get worse, the patient was brought to the emergency room. In the [facility], found to have elevation in BUN and creatinine with the swelling. For that reason, we hav e been consulted. The patient denied any hospitalization. No IV contrast. As I mentioned, the homa ent apparently been taking Aleve. Past Medical History: Include: 1.Diabetes. 2.Coronary artery disease complicated with congestive heart failure. 3.Hepatitis C. 4.Obesity. 5.Leg edema. Past Surgical History: Include hysterectomy, cholecystectomy, appendectomy. Family History: Positive for hypertension. Social History: Lives with family. Denies smoking. Denies drinking. Denies drugs abuse. Review of Systems: Head and Neck: No red eye. No ear pain. GI: Decreased intake. : No polyuria, no dysuria, no h ematuria. 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 Respiratory: No shortness of breath. Cardiovascular: Has l eg swelling. Endocrine: No polydipsia. Skin: No rash. Neuro: Has neuropathy. Has leg pain. Mu sculoskeletal: Has leg pain and chest pain. Physical Examination: Vital Signs: Blood pressure 119/50, pulse of 97. On admission, her blood pressure was down to the 9 0. Chest: Clear to auscultation. Heart: S1, S2. Systolic murmur. Abdomen: Obese. Extremities: Erythema both lower extremity with gangrenous toes on the left side wrinkle skin both l ower extremity multiple blister. Neuro: The patient is sleepy. Moving 4 extremities. No focal. Laboratory Data: WBC 15, H and H 15.4/47.9, platelet of 282. Sodium 135, potassium 5.2, bicarb 17, BUN 70, creatinine of 2, GFR of 24, calcium 9.4, triglycerides 137. Urinalysis specific gravity of 1 .020, RBC of 50, WBC of 50, +2 protein. Serology of hepatitis has been sent. HITESH has been sent. Assessment And Plan: 1.Acute kidney injury secondary to prerenal superimposed with glucose diuresis, questionable of toxi c ATN. Given the history of the hepatitis C, light chain disease need to be ruled out. I am going t o go ahead and send for full serology. We will send for renal ultrasound, and we will follow up the patient. 2.I going to start the patient on aggressive hydration. We will bolus the patient and we will penny nue on normal saline. 3.Urinary tract infection. Continue current antibiotic. We will follow up culture. 4.Foot infection. Follow up with primary and surgery, dose of antibiotic has been adjusted, appropr iate dose now. 5.Altered mental status as by primary. 6.Hyperkalemia secondary to renal failure. We will continue hydration. We will follow up. 7.Acidosis non-anion gap secondary to renal failure. I will start hydration and we will follow up. 8.Diabetes as by primary. Thank you, Dr. Drake, for allowing us to participate in the care of your patient. CARMEN/DIANE Voice ID: [id number] Report ID: [id number]
--- NOTE | 2018-07-07 18:55 | CON ---
Date of Consultation: 07/07/2018 Diagnosis: Bilateral lower extremity cellulitis, lymphedema. History Of Present Illness: This is the case of a 67-year-old patient with bilateral lower extremity edema with open wounds been about a month, with that she is a homebound and mostly bed-bound since s he started to develop ulcers in the bilateral lower extremity. Associated with pain also when touch the skin. The family stated it looks like better than before in the sense of swelling going down. S till have some redness present. The patient admitted to the hospital for treatment with antibiotics. Past Medical History And Surgical History: Include a cholecystectomy, appendectomy, hysterectomy, co ronary artery disease, and diabetes type 2. Social History: She does not smoke. She does drink alcohol. Family History: Noncontributory. Review of Systems: Unable to be obtained. Most of the information was obtained from the patient's family. Physical Examination: General: The patient is awake and alert. HEENT: Pupils anicteric. Neck: Supple. Abdomen: No guarding or rebound. Extremities: Bilateral lower extremity with changes of peripheral vascular disease including a venou s stasis disease and lymphedema. There is some open ulcers in the back related to a pressure ulcer, not taking care of the ulcers. She does not allow anybody to touch the skin since it hurts. There i s broken blisters mixed with the devitalized tissue and cellulitis. Capillary refill is still presen t. Dorsalis pedis is diminished. Laboratory Data: A venous Doppler shows no DVT. On blood work, WBC count of 15 with hemoglobin of 1 5.4. INR is 1.26. Potassium is 5.2, glucose 167. Assessment: A 67-year-old patient, treated with cellulitis of bilateral lower extremity. We did not see any abscess at this moment. There is some blisters partially broken and some areas need to be c lean. She does not let me clean at bedside, not even to touch it any of the leg area. We fully expl ained to her and the family that even though I cannot do this under anesthesia, most of the care will be done in the next few weeks with wound care and she have to cooperate and allow them to do dressin g changes, off-loading, keep the area cover, control her fluid intake, leg elevation. Also, we encou raged her to allow arterial studies to be done to understand her circulation. HM/MODL Voice ID: [id number] Report ID: [id number]
[2018-07-07] MEDS: INSULIN GLARGINE 100 UNITS/ML SQ SCH (20:42)
[2018-07-08] MEDS: PIPER/TAZO/NS 2.25gm 2.25 GM/50 ML BAG IVPB SCH ×2 (00:25→09:45)
[2018-07-08] MEDS: NA CHLORIDE 0.9% 1,000 ML IV SCH (04:07)
[2018-07-08] MEDS: HYDROCODONE/APAP 5/325 MG TAB PO PRN ×2 (04:07→18:11)
[2018-07-08 05:33] LABS: Absolute Lymphocytes (CBC) 0.7 K/uL (0.7-4.9); Absolute Monocytes 1.1 K/uL (0.1-1.3); Absolute Neutrophil 13.4 K/uL (1.8-8.0); Basophils % 0.2 % (0-1.3); Eosinophils % 0.3 % (0-4.4); Hematocrit 45.3 % (36.0-45.0); Lymphocytes % 4.7 % (15.3-44.8); MPV 8.7 fL (7.6-11.3); Monocytes % 7.1 % (3.3-12.3); RBC Red Blood Cell Count 4.95 M/uL (3.86-4.86)
[2018-07-08 05:44] LABS: Albumin 2.1 g/dL (3.4-5.0); Magnesium 2.2 mg/dL (1.8-2.4); Phosphorus 4.7 mg/dL (2.5-4.9); Potassium 5.3 mmol/L (3.5-5.1); Thyroid Stimulating Hormone 3.89 uIU/mL (0.360-3.740)
[2018-07-08] MEDS: TRAMADOL HCL 50 MG TAB PO PRN (06:23)
[2018-07-08] MEDS: INSULIN -REGULAR HUMAN 50 UNIT/0.5 ML ML SQ SCH ×4 (07:30→21:24)
[2018-07-08] MEDS: HYDROMORPHONE HCL 1 MG/ML INJ IV PRN ×3 (08:17→16:37)
[2018-07-08] MEDS ORDERED: SOD POLYSTYREN SUL 15 GM/60 ML UCUP PO ONE (09:00)
[2018-07-08] MEDS: HEPARIN 5000 UNIT/ML 1 ML VIAL SQ SCH ×2 (09:45→21:25)
[2018-07-08] MEDS: NACHLORIDE 0.45% 1,000 ML with NA BICARB 8.4% 75 MEQ IV SCH ×4 (12:00→22:08)
--- NOTE | 2018-07-08 12:39 | RAD REPORT ---
EXAM DESCRIPTION: US - Liver Only - 07/07/2018 10:57 pm CLINICAL HISTORY: elevated Bili, suspect fatty liver vs cirrhosis COMPARISON: No comparisons FINDINGS: Examination is quite limited due to patient body habitus and bowel gas. The liver demonstrates diffuse fatty infiltration.No focal liver lesion or intrahepatic biliary dilat ation.No evidence of portal vein thrombosis. Gallbladder appears surgically absent. Common duct measures 4 mm. Spleen measures 11 cm. IMPRESSION: Fatty liver.
--- NOTE | 2018-07-08 12:39 | RAD REPORT ---
EXAM DESCRIPTION: US - Renal Ultrasound-Complete - 07/07/2018 10:58 pm CLINICAL HISTORY: ALIA COMPARISON: No comparisons FINDINGS: Examination is limited due to patient body habitus and bowel gas. Both kidneys are normal in size, shape and echotexture. The right kidney measures 9.5 x 5.1 x 5.1 cm. No hydronephrosis, focal mass or perinephric fluid. The left kidney measures 10.0 x 5.7 x 4.8 cm. No hydronephrosis, focal mass or perinephric fluid. The urinary bladder is incompletely distended without gross abnormality seen. IMPRESSION: Unremarkable renal sonogram.
[2018-07-08] MEDS: Levofloxacin 250mg IV 250 MG/50 ML BAG IV SCH (14:01)
--- NOTE | 2018-07-08 14:43 | P.PN ---
Subjective Date of Service: 07/08/18 Primary Care Provider: none Chief Complaint: cellulitis, acute renal failure, volume depletion Patient seen and examined at bedside with RN. Chart reviewed. Case discussed with cardiology, surgery, nephrology at this time. Patient overnight complains of having bilateral lower extremity pain. Arterial Doppler was canceled as patient able to tolerate the procedure. MRA of the lower extremity has been placed. Is to offer overnight. This morning states that she sees mild improvement in her bilateral lower extremity however not so much different than before Review of Systems 10-point ROS is otherwise unremarkable Physical Examination - Vital Signs Temperature: 97.5 F Blood Pressure: 107/57 Pulse: 100 Respirations: 18 Pulse Ox (%): 99 - Physical Exam General: Alert, In no apparent distress HEENT: Atraumatic, PERRLA, EOMI Neck: Supple, JVD not distended Respiratory: Normal air movement, Expiratory wheezes, Inspiratory wheezes Cardiovascular: Regular rate/rhythm, Normal S1 S2 Gastrointestinal: Normal bowel sounds, No tenderness Musculoskeletal: Erythema, Tenderness, Warmth, Crepitus, Other (Bullae noted bilateral lower extremity in the great toe. Extensive erythema and tenderness noted bilateral lower extremity.) Integumentary: No rashes Neurological: Normal speech, Normal tone, Normal affect Lymphatics: No axilla or inguinal lymphadenopathy - Studies Microbiology Data (last 24 hrs): 07/06/18 16:22 Wound - Left Foot Gram Stain - Final 07/06/18 16:22 Wound - Left Foot Culture & Sensitivity - Final Serratia Marcescens 07/06/18 16:20 Clean Catch Urine [place] Count - Final >100,000 CFU/ML. 07/06/18 16:20 Clean Catch Urine - Final Escherichia Coli Medications List Reviewed: Yes Assessment And Plan - Current Problems (Diagnosis) (1) Cellulitis Current Visit: Yes Status: Acute Plan: Bilateral lower extremity cellulitis worse on the left than right with possible osteomyelitis of the left foot distally -currently on IV antibiotics vanc and Zosyn. -general surgery consulted. Appreciated recommendations at this time -wound care also consulted to address wound care needs daily. -MRI of the foot pending at this time to rule out osteomyelitis. -arterial Doppler canceled as patient was not able to tolerate the procedure well -will reorder today an online a with pain medication at this time. -cultures are pending at this time. -patient almost likely need IV antibiotics along with extensive wound care LTAC placement. -will get infectious disease consulted on the case. Qualifiers: Site of cellulitis: extremity Site of cellulitis of extremity: lower extremity Laterality: unspecified laterality Qualified Code(s): L03.119 - Cellulitis of unspecified part of limb (2) Acute renal injury Current Visit: Yes Status: Acute Plan: ALIA on CKD -Continue with IV fluids. -Kayexalate today. Will recheck potassium level. -nephrology consulted. 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 transplanted heart: [place] heart Associated angina: without angina Qualified Code(s): I25.10 - Atherosclerotic heart disease of [place] coronary artery without angina pectoris (5) Morbid obesity Current Visit: Yes Status: Chronic (6) PAD (peripheral artery disease) Current Visit: Yes Status: Chronic - Plan Pending clinical improvement at this time. Patient will need L tach placement with extensive wound care needs and IV antibiotics at this time. Will consult case management regarding discharge planning. Will go ahead and continue IV antibiotics here along with general surgery consult. Discharge Plan: Home Plan to discharge in: Greater than 2 days - Code Status/Comfort Care Code Status Assessed: Yes Critical Care: No
[2018-07-08] MEDS ORDERED: NA CHLORIDE 0.9% 500 ML IV ONE (15:05)
[2018-07-08] MEDS: VANCOMYCIN 2 GM in NA CHLORIDE 0.9% 500 ML IVPB SCH (15:15)
[2018-07-08] MEDS: FAMOTIDINE 20 MG TAB PO SCH (16:39)
--- NOTE | 2018-07-08 18:44 | PN ---
Date of Progress Note: 07/08/2018 NEPHROLOGY FOLLOWUP Subjective: The patient is doing slightly better. More awake today. No shortness of breath. Still looks dry. Physical Examination: Vital Signs: Blood pressure 107/57, pulse of 100. The patient had good urine output of 950. Chest: Clear to auscultation. Heart: S1, S2. Regular. Abdomen: Soft, nontender. Extremities: Erythema bilateral, blisters multiple on the right side. Laboratory Data: WBC 15.3, H and H 14.4/45.3, platelet of 214. Sodium 137, potassium 5.3, bicarb do wn to 15, chloride 111, BUN 70, creatinine trending down to 2, GFR 24, calcium 8.9, phosphorus 4.7, m agnesium 2.2, total protein 2.1. SPEP still pending. TSH of 3.8. PTH of 84. CK still pending. Pr otein-creatinine of 1 g. Serology and hepatology still pending. Current Medications: Include: 1.Vancomycin. 2.Zosyn. 3.Tylenol. 4.Gabapentin. 5.Normal saline. 6.Pepcid. 7.Insulin. 8.Hydromorphone. Assessment And Plan: 1.Sepsis. Continue current antibiotic. The patient's culture growing in the urine, Escherichia col i, sensitive to everything; and in the wound culture, growing Serratia marcescens, sensitive to nirali lones, resistant to Unasyn. Renal ultrasound showing normal size kidney 9.5 x 10. 2.Acute kidney injury secondary to prerenal/toxic acute tubular necrosis. I am going to go ahead an d change IV fluid to bicarb drip and we will follow up. 3.Hypertension. Keep holding all blood pressure medication. 4.Leg infection, cellulitis. Follow up with primary. We will continue current antibiotic. Add Lev aquin. Discontinue Zosyn. 5.Acidosis, non-anion gap metabolic acidosis secondary to renal failure. We will start bicarb drip. We will send for urine electrolytes. 6.Diabetes, as by primary. 7.Deconditioning. The patient is going to need long-term. We discussed with Dr. Hurtado. We will re perez to LTAC. CARMEN/DIANE Voice ID: [id number] Report ID: [id number]
--- NOTE | 2018-07-08 19:07 | RAD REPORT ---
EXAM DESCRIPTION: US - Lower Extremity Arterial Bilat - 07/08/2018 6:41 pm CLINICAL HISTORY: PAD. 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 Right popliteal and posterior tibial arteries are not visualized. A s mall section of the right dorsalis pedis artery seen demonstrating monophasic and blunted flow. Left common femoral artery is triphasic. Left superficial femoral artery is monophasic and blunted. L eft popliteal is not well visualized. Left posterior tibial artery and dorsalis pedal arteries are sonny th monophasic with blunted amplitude. IMPRESSION: Limited examination is submitted demonstrating moderate bilateral lower extremity periph eral vascular disease. Note is made of the significant flow alteration from triphasic to monophasic w aveforms at the level the distal left common femoral artery, which could indicate a focal stenotic le dejon in this region.
[2018-07-08] MEDS: INSULIN GLARGINE 100 UNITS/ML SQ SCH (21:24)
[2018-07-09] MEDS: TRAMADOL HCL 50 MG TAB PO PRN ×2 (00:18→14:28)
--- NOTE | 2018-07-09 02:22 | PN ---
Date of Progress Note: 07/08/2018 Diagnosis: Bilateral lower extremity cellulitis with ulcers and open wounds. No changes. Review of Systems: Ten points otherwise unremarkable. Objective: GENERAL: The patient is awake and alert. Heart: S1, S2. ABDOMEN: Soft and depressible. EXTREMITIES: Bilateral lower extremity cellulitis, swelling is improving to multiple leg ulcers pres ent that will be debrided surgically since the patient cannot tolerate, not even touch in those areas . Laboratory Data: The blood work shows a WBC count of 15 with hemoglobin of 14.4, INR is 1.26. Plan: The requested since we were going for surgical debridement to place a central line on this pat ient due to poor peripheral access and plan for long-term antibiotics. The benefits, alternatives, a nd risks of debridement and central line. Fully explained to the patient and the family member prese nt which include, but not limited to infection, bleeding, damage to adjacent structures, and complica tion, NM, pneumothorax, hemothorax, cardiac arrhythmias, pericarditis, DVT, PE, NM and even . ROSS/DIANE Voice ID: [id number] Report ID: [id number]
[2018-07-09 03:35] LABS: Absolute Lymphocytes (CBC) 0.7 K/uL (0.7-4.9); Absolute Monocytes 0.9 K/uL (0.1-1.3); Absolute Neutrophil 11.7 K/uL (1.8-8.0); Basophils % 0.3 % (0-1.3); Eosinophils % 0.6 % (0-4.4); Hematocrit 40.9 % (36.0-45.0); Lymphocytes % 5.5 % (15.3-44.8); MPV 9.2 fL (7.6-11.3); Monocytes % 6.6 % (3.3-12.3); RBC Red Blood Cell Count 4.56 M/uL (3.86-4.86)
[2018-07-09] MEDS: NACHLORIDE 0.45% 1,000 ML with NA BICARB 8.4% 75 MEQ IV SCH ×6 (03:44→20:15)
[2018-07-09 03:49] LABS: Albumin 1.8 g/dL (3.4-5.0); Magnesium 2.2 mg/dL (1.8-2.4); Phosphorus 4.7 mg/dL (2.5-4.9); Potassium 4.3 mmol/L (3.5-5.1)
[2018-07-09] MEDS ORDERED: VANCOMYCIN 2 GM in NA CHLORIDE 0.9% 500 ML IVPB SCH (04:00)
[2018-07-09 04:04] LABS: Blood Morphology Comment NOT SEEN (NOT SEEN); Platelet Estimate ADEQ; Urine White Blood Cell Casts OK
[2018-07-09] MEDS ORDERED: NA CHLORIDE 0.9% 500 ML ONE (05:09)
[2018-07-09] MEDS ORDERED: HYDROCODONE/APAP 7.5/325 MG TAB PO ONE (05:44)
[2018-07-09] MEDS: INSULIN -REGULAR HUMAN 50 UNIT/0.5 ML ML SQ SCH ×4 (07:30→21:33)
[2018-07-09] MEDS: HYDROMORPHONE HCL 1 MG/ML INJ IV PRN ×4 (07:40→21:34)
[2018-07-09] MEDS: HEPARIN 5000 UNIT/ML 1 ML VIAL SQ SCH ×2 (09:00→20:50)
[2018-07-09] MEDS ORDERED: PROPOFOL 200 MG/20 ML VIAL IV ONE (09:44)
[2018-07-09] MEDS ORDERED: FENTANYL CITR 100 MCG/2 ML ONE (09:45)
[2018-07-09] MEDS ORDERED: MIDAZOLAM HCL 2 MG/2 ML INJ ONE (09:45)
[2018-07-09] MEDS ORDERED: LIDOCAINE 1% MPF 5 ML VIAL ONE (09:45)
[2018-07-09] MEDS ORDERED: NA CHLORIDE 0.9% 1,000 ML ONE (09:59)
--- NOTE | 2018-07-09 10:04 | RAD REPORT ---
EXAM DESCRIPTION: MRI - Foot Left Wo Cont - 07/09/2018 9:51 am CLINICAL HISTORY: R/O Osteomylitis Diabetic left foot ulcer, evaluate for osteomyelitis. COMPARISON: No comparisons FINDINGS: The plantar fascia and Achilles tendon are normal. No significant tenosynovitis of the fle xor or extensor tendons of the ankle seen. No marrow replacing process is observed. No abnormal areas of T2/IR marrow hyperintensity. No finding to indicate osteomyelitis. Soft tissue swelling is present about the foot. No soft tissue mass, hematoma or fluid collection. IMPRESSION: No finding to indicate osteomyelitis.
[2018-07-09] MEDS ORDERED: HEPARIN 500 UNIT/5 ML SYR IV ONE (10:05)
[2018-07-09] MEDS ORDERED: EPHEDRINE SULF 50 MG/ML VIAL ONE (10:34)
--- NOTE | 2018-07-09 10:34 | RAD REPORT ---
EXAM DESCRIPTION: MRI - Foot Right Wo Cont - 07/09/2018 9:51 am CLINICAL HISTORY: R/O Osteomylitis Diabetic foot ulcer, right foot swelling. Evaluate for osteomyelitis. COMPARISON: No comparisons FINDINGS: The motion degraded study is submitted, limiting assessment. Moderate soft tissue swelling is seen about the great toe. The subcutaneous fat about the foot is ret iculated. Plantar fascia and Achilles tendon are intact. The extensor and flexor tendons of the ankle show no significant tenosynovitis. No marrow replacing process is identified to indicate osteomyelitis, although assessment is mildly li mited by significant motion artifact. IMPRESSION: No finding to indicate osteomyelitis within the limitations of motion degradation. Moderate soft tissue swelling is seen about the great toe.
[2018-07-09] MEDS ORDERED: NS 0.9% VIAL 10 ML ONE ×2 (10:35→10:42)
[2018-07-09] MEDS ORDERED: SILVER SULFADIAZINE TOP ONE (11:12)
--- NOTE | 2018-07-09 11:22 | P.BOP ---
Preoperative diagnosis: bilateral lower extremities cellulitis , necrotic ulcers Postoperative diagnosis: same Primary procedure: Excisional subq debridment of bilateral LE: 1. left leg [id number] Secondary procedure: 2. left heel 7x6cm, 3. left foot 9x3cm, 4. right leg [id number], Other procedure(s): 5. right heel 7x9cm, Right foot 7x5cm, Central line placement, fluoroscopy Specimen: necrotic tissue Findings: see dictation Anesthesia: General Complications: None Drain(s): Other Transferred to: Recovery Room Condition: Good
--- NOTE | 2018-07-09 11:27 | RAD REPORT ---
EXAM DESCRIPTION: RAD - Fluoroscopy <1 Hour - 07/09/2018 10:51 am CLINICAL HISTORY: Device placement central venous catheter placement FINDINGS: A central venous catheter was placed into the superior vena cava. Multiple fluoroscopic sp ot images are submitted. The examination was performed by Dr. Julio. Ten fluoroscopic spot images obtained. Fluoroscopy time 1 minute
--- NOTE | 2018-07-09 11:56 | P.PN ---
Subjective Date of Service: 07/09/18 Primary Care Provider: none Chief Complaint: cellulitis, acute renal failure, volume depletion Patient seen and examined at bedside with RN. Chart reviewed. Case discussed with cardiology, surgery, nephrology at this time. Patient overnight complains of having bilateral lower extremity pain. Arterial Doppler done today. MRI negative for osteomyletis. Surgery planning for I&D Review of Systems 10-point ROS is otherwise unremarkable Physical Examination - Vital Signs Temperature: 97.0 F Blood Pressure: 131/88 Pulse: 98 Respirations: 16 Pulse Ox (%): 96 - Physical Exam General: Alert, In no apparent distress, Obese HEENT: Atraumatic, PERRLA, EOMI Neck: Supple, JVD not distended Respiratory: Normal air movement, Expiratory wheezes, Inspiratory wheezes Cardiovascular: Regular rate/rhythm, Normal S1 S2 Gastrointestinal: Normal bowel sounds, No tenderness Musculoskeletal: Swelling, Erythema, Tenderness, Warmth Integumentary: No rashes Neurological: Normal speech, Normal tone, Normal affect Lymphatics: No axilla or inguinal lymphadenopathy - Studies Microbiology Data (last 24 hrs): 07/06/18 16:22 Wound - Left Foot Gram Stain - Final 07/06/18 16:22 Wound - Left Foot Culture & Sensitivity - Final Serratia Marcescens 07/06/18 16:20 Clean Catch Urine Mcdonough Count - Final >100,000 CFU/ML. 07/06/18 16:20 Clean Catch Urine - Final Escherichia Coli Medications List Reviewed: Yes Assessment And Plan - Current Problems (Diagnosis) (1) Cellulitis Onset Date: 07/09/18 Current Visit: Yes Status: Acute Plan: Bilateral lower extremity cellulitis worse on the left than right with possible osteomyelitis of the left foot distally -currently on IV antibiotics vanc and Zosyn. -general surgery consulted. Appreciated recommendations at this time -incision and drainage plan for today. -wound care also consulted to address wound care needs daily. -MRI of the foot negative for osteomyelitis osteomyelitis. -arterial Doppler consistent with severe PAD disease. -due to the extensive nature of the bilateral cellulitis put patient will be needing extensive wound care along with 2 IV antibiotics. -long-term acute care facility will be required. -infectious disease also consulted regarding recommendations on IV antibiotics. So far patient will be needing IV vancomycin and Zosyn. Qualifiers: Site of cellulitis: extremity Site of cellulitis of extremity: lower extremity Laterality: unspecified laterality Qualified Code(s): L03.119 - Cellulitis of unspecified part of limb (2) Acute renal injury Onset Date: 07/09/18 Current Visit: Yes Status: Acute Plan: ALIA on CKD -Continue with IV fluids. -Kayexalate today. Will recheck potassium level. -nephrology consulted. Appreciated recommendations at this (3) Diabetes mellitus Onset Date: 07/09/18 Current Visit: Yes Status: Chronic Qualifiers: Diabetes mellitus type: type 2 Diabetes mellitus terminal gauger insulin use: with terminal gauger use Diabetes mellitus complication status: with skin complications Diabetes mellitus complication detail: with other skin ulcer Qualified Code(s): E11.622 - Type 2 diabetes mellitus with other skin ulcer; Z79.4 - FDC (current) use of insulin (4) CAD (coronary artery disease) Onset Date: 07/09/18 Current Visit: Yes Status: Chronic Qualifiers: Coronary Disease-Associated Artery/Lesion type: [place] artery [place] vs. transplanted heart: [place] heart Associated angina: without angina Qualified Code(s): I25.10 - Atherosclerotic heart disease of [place] coronary artery without angina pectoris (5) Morbid obesity Onset Date: 07/09/18 Current Visit: Yes Status: Chronic (6) PAD (peripheral artery disease) Onset Date: 07/09/18 Current Visit: Yes Status: Chronic Plan: On heparin b.i.d. - Plan Pending clinical improvement at this time. Patient will need LTAC placement with extensive wound care needs and IV antibiotics at this time. Consulted case management regarding discharge planning. Will go ahead and continue IV antibiotics here in follow up with patient post incision and drainage. Discharge Plan: LTAC Plan to discharge in: Greater than 2 days - Code Status/Comfort Care Code Status Assessed: Yes Critical Care: No
--- NOTE | 2018-07-09 12:34 | RAD REPORT ---
EXAM DESCRIPTION: RAD - Chest Single View - 07/09/2018 12:16 pm CLINICAL HISTORY: Device placement central venous line placement COMPARISON: July 06, 2018 FINDINGS: A central venous line has been inserted with its tip in the proximal superior vena cava. Minimal interstitial pulmonary edema is suspected. The heart is mildly to moderately enlarged IMPRESSION: Central venous line with its tip in the proximal superior vena cava
[2018-07-09] MEDS: Levofloxacin 250mg IV 250 MG/50 ML BAG IV SCH (14:10)
--- NOTE | 2018-07-09 15:33 | ECHO ---
HEIGHT: 5 ft 7 in WEIGHT: 257 lb 9.6 oz DATE OF STUDY: REFER DR: Patel Drake DO 2-DIMENSIONAL: YES M.MODE: YES DOPPLER: YES COLOR FLOW: YES TDS: NO PORTABLE: NO DEFINITY: NO BUBBLE STUDY: NO DIAGNOSIS: EVALUATE CONGESTIVE HEART FAILURE CARDIAC HISTORY: CATHERIZATION: YES SURGERY: NO PROSTHETIC VALVE: NO PACEMAKER: NO MEASUREMENTS (cm) DIASTOLIC (NORMALS) SYSTOLIC (NORMALS) IVSd 1.2 (0.6-1.2) LA Diam 4.2 (1.9-4.0) LVEF 50-55% LVIDd 4.1 (3.5-5.7) LVIDs 2.5 (2.0-3.5) %FS 40% LVPWd 1.3 (0.6-1.2) Ao Diam 2.7 (2.0-3.7) 2 DIMENSIONAL ASSESSMENT: RIGHT ATRIUM: NORMAL LEFT ATRIUM: DILATED RIGHT VENTRICLE: NORMAL LEFT VENTRICLE: LEFT VENTRICULAR HYPERTROPHY TRICUSPID VALVE: NORMAL MITRAL VALVE: MITRAL ANNULAR CALCIFICATION PULMONIC VALVE: NORMAL AORTIC VALVE: STENOSIS PERICARDIAL EFFUSION: NONE AORTIC ROOT: NORMAL LEFT VENTRICULAR WALL MOTION: NORMAL DOPPLER/COLOR FLOW: MILD AORTIC, MITRAL AND TRICUSPID REGURGITATION. MILD PULMONARY HYPERTENSION. ESTIMATED RIGHT VENTRICULAR SYSTOLIC PRESSURE 45 mmHg. MODERATE AORTIC STENOSIS. PEAK/ MEAN GRADIENT 32/18. ESTIMATED AORTIC VALVE AREA 1.3 CENTIMETERS SQUARED. COMMENTS: NORMAL LEFT VENTRICULAR EJECTION FRACTION. LEFT VENTRICULAR HYPERTROPHY. DILATED LEFT ATRIUM. MITRAL ANNULAR CALCIFICATION. MODERATE AORTIC STENOSIS. MILD AORTIC, MITRAL AND TRICUSPID REGURGITATION. MILD PULMONARY HYPERTENSION. TECHNOLOGIST: Veronica NGUYEN
[2018-07-09] MEDS: CEFEPIME/SWI 1gm 1 GM/10 ML SYR IVP SCH ×2 (16:35→20:49)
[2018-07-09] MEDS: FAMOTIDINE 20 MG TAB PO SCH (16:37)
[2018-07-09] MEDS ORDERED: CEFEPIME 1 GM/VIAL IV SCH (21:00)
--- NOTE | 2018-07-09 21:04 | CON ---
History Of Present Illness: This is a 67-year-old female coming in with lower extremity cellulitis s tatus post debridement. The patient has significant history of diabetes mellitus with diabetic neuro cheryl, coronary artery disease, hepatitis C, morbid obesity, leg edema. Past surgical history of hys terectomy, cholecystectomy, appendectomy, coming in with altered mental status and cellulitis of lowe r extremity. The patient had a fall recently, currently after debridement. The patient has been shirley ated with IV antibiotic vancomycin and Levaquin. The patient is growing Escherichia coli in her urin e and Serratia in her left foot wound. Blood cultures are negative for 24 hours. Past Medical History: As per HPI. Social History: Nonsmoker, nondrinker. Family History: Noncontributory. Medications: Vancomycin and Levaquin. See MARs for other medication. Allergies: NO KNOWN DRUG ALLERGIES EXCEPT A PETROLEUM BASE COMPONENT. Review of Systems: Unable to obtain as patient is somnolent under pain medication. Physical Examination: Vital Signs: Temperature 97.4, pulse 100, respirations 16, blood pressure 116/90. HEENT: Unremarkable. Neck: Supple. Lungs: Basal crackles. Heart S1, S2 regular. Abdomen: Soft, nontender. Bowel sounds present. Extremities: Under new wound dressing after surgical debridement. Laboratory Data: Shows WBC 13.4, hemoglobin 13.2, platelets are 221. Chemistry shows sodium 138, po tassium 4.3, chloride 110, bicarb 16, BUN 75, creatinine 2.2, glucose is 158. Urine culture, E coli. Wound culture, Serratia marcescens. MRI of the foot shows no signs of osteomyelitis. Chest x-ray done today shows central venous line in place of superior vena cava. No infiltrate. Assessment And Plan: Cellulitis of lower extremities status post debridement, leukocytosis, urinary tract infection. We will recommend to discontinue vancomycin and start the patient on cefepime. Lef t leg excisional debridement. Wound 35 x 30 cm. Left heel wound 7 x 6 cm. Left foot wound 9 x 3 cm . Right leg wound 30 x 28 cm. Right heel wound 7 x 9 cm. Right foot, 7 x 5 cm. Continue IV antibi otic. Discontinue vancomycin. Start patient on cefepime 1 g q.12 hours. Total course of 4-6 weeks depending on patient wound healing and sugar control. We will follow the patient closely. NF/MODL Voice ID: [id number] Report ID: [id number]
[2018-07-09] MEDS: INSULIN GLARGINE 100 UNITS/ML SQ SCH (21:33)
--- NOTE | 2018-07-10 02:26 | OP ---
Date of Procedure: 07/09/2018 Surgeon: Julio César Julio MD Preoperative Diagnoses: Bilateral lower extremity cellulitis, necrotic ulcer, and venous stasis dise ase. Postoperative Diagnoses: Bilateral lower extremity cellulitis, necrotic ulcer, venous stasis disease , and poor peripheral access. Procedures: 1.Excisional subcutaneous debridement of the left leg ulcer, 35 x 30 cm. 2.Excisional subcutaneous debridement of the left heel ulcer, 7 x 6 cm. 3.Excisional subcutaneous debridement of the left foot, 9 x 3 cm. 4.Excisional subcutaneous debridement of the right leg, 30 x 28 cm. 5.Excisional subcutaneous debridement of right heel ulcer, 7 x 9 cm. 6.Excisional subcutaneous debridement of right foot ulcer, 7 x 5 cm. 7.Central line placement on the right subclavian vein. 8.Interpretation of fluoroscopy. Indications: This is the case of a female who comes to us with large areas of devitalized tissue and ulcers over the bilateral lower extremity, very painful. She does not allow even dressing changes o r even touching the area, so we have to do debridement of that area under anesthesia. Also, the [facility] doctor is going to keep her on antibiotics, manager intermediate. She has poor peripheral access, so they r equest also central line placement. The benefits, alternatives, and risks of this procedure as above fully explained to the patient and the and the family, which include, but not limited to inf ection, bleeding, damage to adjacent structures, anesthesia complication, pneumothorax, hemothorax, c ardiac arrhythmias, DVTs, pericarditis, nonhealing wounds, CO, and even . They also understand the importance of this may not relieve any symptoms, she might need more than one surgical interventi on. They understand also the importance of offloading dressing changes and compliance with treatment . Put a central line, also they understand a chance of a pneumothorax and is important to remove it as soon as treatment with IV medication is finished. Nutrition is also important on this case and al so off-loading and leg elevation. We also recommend her to see a vein center and arterial vascular s urgeon peripheral. Description Of Procedure: The patient was brought to the operating room, placed in supine position. Anesthesia was done without complication. The right chest and neck were prepped and draped in usual sterile fashion. The patient was placed in Trendelenburg position. An 18-gauge needle was placed i n the right subclavian vein on the first attempt. Fluoroscopy was used with guidewire to the needle into the superior vena cava. The needle was removed and a central line triple lumen was placed using Seldinger technique under fluoroscopy guidance. Excellent backflow and inflow, the line was secured in place with 2-0 nylon and covered with sterile dressings. The patient tolerated the procedure wel l. That area of the bilateral lower extremity was prepped and draped in usual sterile fashion. We p roceeded to do debridement of that area using a sharp knife, also a curette. The ulcers were large. Please see above for details. These ulcers go deep. When we mentioned the foot including that foot area, not only the dorsal foot, but also the toes region. All the necrotic tissue was removed. The area was irrigated. Then, both the areas were covered with Silvadene and sterile dressings. The pa tient tolerated each procedure well. The patient was sent to recovery in stable condition. A chest x-ray was ordered stat. ROSS/DIANE Voice ID: [id number] Report ID: [id number]
[2018-07-10] MEDS: NACHLORIDE 0.45% 1,000 ML with NA BICARB 8.4% 75 MEQ IV SCH ×6 (03:13→13:55)
--- NOTE | 2018-07-10 03:20 | PN ---
Date of Progress Note: 07/09/2018 Chief Complaint: Chronic kidney disease, diabetic complication. The patient developed diabetic foot infection. Today she underwent debridement. The patient develop ed acute kidney injury secondary to prerenal azotemia with tubular necrosis. The patient is on IV fl uids to replace bicarbonate. The patient was found to have hyperchloremic metabolic acidosis and bic arbonate level is stabilizing. Review of Systems: Denies fever, chills. Physical Examination: Lungs: Clear to auscultation bilaterally. Heart: S1, S2. Abdomen: Soft, benign. Extremities: Dressing in place. Vital signs: 105/57, heart rate 103. Impression And Plan: 1.Sepsis. Continue IV antibiotics pending cultures. Escherichia coli sensitivity needs to be checke d and results are pending. Wound culture showed Serratia marcescens sensitive to quinolones, continu e current treatment. 2.Renal ultrasound showed 9.5 to 10 cm kidneys. There is no hydronephrosis. 3.Acute kidney injury secondary to prerenal azotemia. 4.Hypertension. Hold blood pressure medication if systolic blood pressure is below 110. 5.Infection, cellulitis of the lower extremity, diabetic foot infection. Continue antibiotics. The patient underwent debridement today. Adjust antibiotics per antwon reina. NEETU/DIANE Voice ID: [id number] Report ID: [id number]
[2018-07-10 03:51] LABS: Rheumatoid Factor POS (NEG)
[2018-07-10] MEDS: HYDROMORPHONE HCL 1 MG/ML INJ IV PRN (04:40)
[2018-07-10 04:48] LABS: Absolute Lymphocytes (CBC) 0.7 K/uL (0.7-4.9); Absolute Monocytes 0.9 K/uL (0.1-1.3); Absolute Neutrophil 10.9 K/uL (1.8-8.0); Basophils % 0.1 % (0-1.3); Eosinophils % 0.2 % (0-4.4); Lymphocytes % 5.6 % (15.3-44.8); MPV 9.3 fL (7.6-11.3); RBC Red Blood Cell Count 4.48 M/uL (3.86-4.86)
[2018-07-10 04:55] LABS: Albumin 1.7 g/dL (3.4-5.0); Magnesium 2.2 mg/dL (1.8-2.4); Phosphorus 4.8 mg/dL (2.5-4.9); Potassium 3.9 mmol/L (3.5-5.1)
[2018-07-10] MEDS ORDERED: POTASSIUM 25 MEQ EFFERV TAB PO ONE (06:00)
[2018-07-10] MEDS: INSULIN -REGULAR HUMAN 50 UNIT/0.5 ML ML SQ SCH ×4 (08:51→21:00)
[2018-07-10] MEDS: HEPARIN 5000 UNIT/ML 1 ML VIAL SQ SCH ×2 (08:52→21:30)
[2018-07-10] MEDS: CEFEPIME/SWI 1gm 1 GM/10 ML SYR IVP SCH ×2 (08:52→21:30)
[2018-07-10] MEDS ORDERED: HYDROMORPHONE HCL 1 MG/ML INJ IV PRN (11:03)
[2018-07-10] MEDS: DOCUSATE NA 100 MG CAP PO SCH ×2 (11:30→21:00)
--- NOTE | 2018-07-10 12:58 | P.PN ---
Subjective Date of Service: 07/10/18 Primary Care Provider: none Chief Complaint: cellulitis, acute renal failure, volume depletion Subjective: No new changes Pt with Hx of DM , CKD? admitted for sepsis Cr up to 2.5 pt might require Hd in the near future, I discussed with family at bed side plan to discharge to LTAC off vancomycin Physical Examination - Vital Signs Temperature: 98.2 F Blood Pressure: 105/59 Pulse: 126 Respirations: 18 Pulse Ox (%): 95 - Physical Exam General: Alert, Mild distress Neck: Supple, Without JVD or thyroid abnormality Respiratory: Clear to auscultation bilaterally, Normal air movement Cardiovascular: No edema, Regular rate/rhythm Gastrointestinal: Normal bowel sounds, Soft and benign Musculoskeletal: Other (Rt foot gangernous changes ) Integumentary: No rashes - Studies Medications List Reviewed: Yes Assessment And Plan - Current Problems (Diagnosis) (1) Acute renal injury Onset Date: 07/09/18 Current Visit: Yes Status: Acute (2) Hyperkalemia Onset Date: 07/09/18 Current Visit: Yes Status: Acute (3) Hyponatremia Onset Date: 07/09/18 Current Visit: Yes Status: Acute (4) Diabetes mellitus Onset Date: 07/09/18 Current Visit: Yes Status: Chronic Qualifiers: Diabetes mellitus type: type 2 Diabetes mellitus vacuum worker insulin use: with vacuum worker use Diabetes mellitus complication status: with skin complications Diabetes mellitus complication detail: with other skin ulcer Qualified Code(s): E11.622 - Type 2 diabetes mellitus with other skin ulcer; Z79.4 - half-way (current) use of insulin (5) Morbid obesity Onset Date: 07/09/18 Current Visit: Yes Status: Chronic (6) PAD (peripheral artery disease) Onset Date: 07/09/18 Current Visit: Yes Status: Chronic - Plan ALIA unknown baseline cr US no hydro U +ve for prot and bld UPC ~1.0 will reduce IVF rate will rpt CXr tomorrow F/u serology W/U pt might require HD in the near future , rsik for ESRd will increase with contrast exposure , discussed with family Leg infection, cellulitis. S/P I@D MRi: No OM on cefepime Diabetes, as by primary. poorly controlled
--- NOTE | 2018-07-10 12:58 | P.PN ---
Subjective Date of Service: 07/10/18 Primary Care Provider: none Chief Complaint: cellulitis, acute renal failure, volume depletion Patient seen and examined at bedside with RN. Chart reviewed. Case discussed with cardiology, surgery, nephrology at this time. Patient overnight complains of having bilateral lower extremity pain. Status post incision and drainage today. Currently awaiting L tach placement. Long-term acute care placement needed because of extensive wound care needs for over an hr and IV antibiotics. Review of Systems 10-point ROS is otherwise unremarkable Physical Examination - Vital Signs Temperature: 98.2 F Blood Pressure: 105/59 Pulse: 126 Respirations: 18 Pulse Ox (%): 95 - Physical Exam General: Alert, In no apparent distress, Oriented x2 HEENT: Atraumatic, PERRLA, EOMI Neck: Supple, JVD not distended Respiratory: Normal air movement, Crackles/rales, Expiratory wheezes, Inspiratory wheezes Cardiovascular: Regular rate/rhythm, Normal S1 S2 Gastrointestinal: Normal bowel sounds, No tenderness Musculoskeletal: Swelling, Erythema, Tenderness, Warmth Integumentary: No rashes Neurological: Normal speech, Normal tone, Normal affect Lymphatics: No axilla or inguinal lymphadenopathy - Studies Medications List Reviewed: Yes Assessment And Plan - Current Problems (Diagnosis) (1) Cellulitis Onset Date: 07/09/18 Current Visit: Yes Status: Acute Plan: Bilateral lower extremity cellulitis worse on the left than right with possible osteomyelitis of the left foot distally -currently on IV antibiotics vanc and Zosyn. -wound cultures positive for Serratia -general surgery consulted. Appreciated recommendations at this time -incision and drainage POD 1. -wound care also consulted to address wound care needs daily. -MRI of the foot negative for osteomyelitis osteomyelitis. -arterial Doppler consistent with severe PAD disease. -due to the extensive nature of the bilateral cellulitis patient will be needing extensive wound care for over an hr along with 2 IV antibiotics. -long-term acute care facility will be required. -infectious disease also consulted regarding recommendations on IV antibiotics. So far patient will be needing IV vancomycin and Zosyn. Qualifiers: Qualified Code(s): L03.119 - Cellulitis of unspecified part of limb (2) Acute renal injury Onset Date: 07/09/18 Current Visit: Yes Status: Acute Plan: ALIA on CKD -creatine is 2.5. -Kayexalate today. Will recheck potassium level. -nephrology consulted. 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 - Plan Pending clinical improvement at this time. Patient will need LTAC placement with extensive wound care needs and IV antibiotics at this time. Consulted case management regarding discharge planning. Will go ahead and continue IV antibiotics here in follow up with patient post incision and drainage. Discharge Plan: LTAC Plan to discharge in: 48 Hours - Code Status/Comfort Care Code Status Assessed: Yes Critical Care: No
[2018-07-10] MEDS: Levofloxacin 250mg IV 250 MG/50 ML BAG IV SCH (13:10)
--- NOTE | 2018-07-10 13:35 | PN ---
Date of Progress Note: 07/10/2018 This is a progress note for 07/10/2018. Ms. Schilling was seen by Dr. Cornell for severe peripheral celso rial disease, diabetic foot infection, has acute on chronic renal failure. Nephrology is following. Echocardiogram yesterday showed moderate aortic stenosis, normal ejection fraction, mild aortic regu rgitation, mitral regurgitation, and tricuspid regurgitation with pulmonary hypertension that is mild . Arterial Doppler showed possible stenosis on the left common femoral artery, but she had severe di ffuse disease below the knee bilaterally. None of the blood vessels [id number] were visualized b y ultrasound secondary to severe disease. I think we need to continue her present medical regimen. She is not a candidate for angiography with her renal dysfunction at this point. If her renal functi on improves, it may be worth considering an abdominal angiogram with runoff as an outpatient. For no w, we will sign off. LESLI/DIANE Voice ID: [id number] Report ID: [id number]
[2018-07-10] MEDS: TRAMADOL HCL 50 MG TAB PO PRN (13:54)
[2018-07-10 16:06] LABS: HIV 1/2 Antibody Diff Not indicated.; HIV AG/AB 4TH GEN Non-reactive (Non-reactive)
[2018-07-10 16:06] LABS: HIV 1/2 Antibody Diff Not indicated.; HIV AG/AB 4TH GEN Non-reactive (Non-reactive)
[2018-07-10] MEDS: ACETAMINOPHEN 500 MG TAB PO PRN (17:24)
[2018-07-10] MEDS: FAMOTIDINE 20 MG TAB PO SCH (17:25)
[2018-07-10] MEDS ORDERED: LORazepam 2 MG/ML VIAL IV ONE ×2 (18:40→19:00)
[2018-07-10] MEDS: HYDROCODONE/APAP 5/325 MG TAB PO PRN (18:43)
[2018-07-10] MEDS: INSULIN GLARGINE 100 UNITS/ML SQ SCH (21:30)
[2018-07-11 04:17] LABS: Absolute Lymphocytes (CBC) 0.6 K/uL (0.7-4.9); Absolute Neutrophil 9.3 K/uL (1.8-8.0); Basophils % 1.7 % (0-1.3); Eosinophils % 0.8 % (0-4.4); Hematocrit 38.3 % (36.0-45.0); MPV 9.2 fL (7.6-11.3); Monocytes % 8.7 % (3.3-12.3); RBC Red Blood Cell Count 4.33 M/uL (3.86-4.86)
[2018-07-11 04:23] LABS: Albumin 1.6 g/dL (3.4-5.0); Magnesium 2.3 mg/dL (1.8-2.4); Phosphorus 4.5 mg/dL (2.5-4.9); Potassium 3.7 mmol/L (3.5-5.1)
[2018-07-11] MEDS: NACHLORIDE 0.45% 1,000 ML with NA BICARB 8.4% 75 MEQ IV SCH ×4 (05:17→06:13)
[2018-07-11] MEDS ORDERED: KCL 20 MEQ/100 mL IVPB 20 MEQ/100 ML BAG IV SCH (05:30)
[2018-07-11] MEDS: TRAMADOL HCL 50 MG TAB PO PRN ×2 (06:50→18:04)
[2018-07-11] MEDS: INSULIN -REGULAR HUMAN 50 UNIT/0.5 ML ML SQ SCH ×4 (07:30→21:00)
[2018-07-11] MEDS: ACETAMINOPHEN 500 MG TAB PO PRN (08:37)
[2018-07-11] MEDS: DOCUSATE NA 100 MG CAP PO SCH ×2 (08:38→21:00)
[2018-07-11] MEDS: HEPARIN 5000 UNIT/ML 1 ML VIAL SQ SCH ×2 (08:38→21:00)
[2018-07-11] MEDS: CEFEPIME/SWI 1gm 1 GM/10 ML SYR IVP SCH ×2 (08:40→21:00)
--- NOTE | 2018-07-11 09:26 | RAD REPORT ---
EXAM DESCRIPTION: [facility] Single View07/11/2018 8:12 am CLINICAL HISTORY: Chest pain COMPARISON: July 09, 2018 FINDINGS: Minimal interstitial pulmonary opacities are present. Heart is mildly to moderate enlarge d. Lung bases are hazy which may indicate small pleural effusions. PICC line remains in place
--- NOTE | 2018-07-11 12:11 | P.PN ---
Subjective Date of Service: 07/11/18 Primary Care Provider: none Chief Complaint: cellulitis, acute renal failure, volume depletion Patient seen and examined at bedside with RN. Chart reviewed. Case discussed with cardiology, surgery, nephrology at this time. Patient overnight complains of having bilateral lower extremity pain. Status post incision and drainage today. Currently awaiting LTAC placement. Long-term acute care placement needed because of extensive wound care needs for over an hr, Close Monitoring by MD and IV antibiotics. Review of Systems 10-point ROS is otherwise unremarkable Physical Examination - Vital Signs Temperature: 97.8 F Blood Pressure: 109/56 Pulse: 96 Respirations: 18 Pulse Ox (%): 98 - Physical Exam General: Alert, In no apparent distress HEENT: Atraumatic, PERRLA, EOMI Neck: Supple, JVD not distended Respiratory: Clear to auscultation bilaterally, Normal air movement Cardiovascular: Regular rate/rhythm, Normal S1 S2 Gastrointestinal: Normal bowel sounds, No tenderness Musculoskeletal: Erythema, Tenderness, Warmth Integumentary: No rashes Neurological: Normal speech, Normal tone, Normal affect Lymphatics: No axilla or inguinal lymphadenopathy - Studies Medications List Reviewed: Yes Assessment And Plan - Current Problems (Diagnosis) (1) Cellulitis Onset Date: 07/09/18 Current Visit: Yes Status: Acute Plan: Bilateral lower extremity cellulitis worse on the left than right with possible osteomyelitis of the left foot distally -currently on IV antibiotics vanc and Zosyn. -wound cultures positive for Serratia -general surgery consulted. Appreciated recommendations at this time -incision and drainage POD 2. -wound care also consulted to address wound care needs daily. -MRI of the foot negative for osteomyelitis osteomyelitis. -arterial Doppler consistent with severe PAD disease. -due to the extensive nature of the bilateral cellulitis patient will be needing extensive wound care for over an hr along with 2 IV antibiotics. -long-term acute care facility will be required. -infectious disease also consulted regarding recommendations on IV antibiotics. So far patient will be needing IV vancomycin and Zosyn. Qualifiers: Site of cellulitis: extremity Site of cellulitis of extremity: lower extremity Laterality: unspecified laterality Qualified Code(s): L03.119 - Cellulitis of unspecified part of limb (2) Acute renal injury Onset Date: 07/09/18 Current Visit: Yes Status: Acute Plan: ALIA on CKD -creatine is 2.5. -Kayexalate today. Will recheck potassium level. -nephrology consulted. 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 transplanted heart: [place] heart Associated angina: without angina Qualified Code(s): I25.10 - Atherosclerotic heart disease of [place] coronary artery without angina pectoris (5) Morbid obesity Onset Date: 07/09/18 Current Visit: Yes Status: Chronic (6) PAD (peripheral artery disease) Onset Date: 07/09/18 Current Visit: Yes Status: Chronic Plan: On heparin b.i.d. - Plan Pending clinical improvement at this time. Patient will need LTAC placement with extensive wound care needs and IV antibiotics at this time. Consulted case management regarding discharge planning. Will go ahead and continue IV antibiotics here in follow up with patient post incision and drainage.
--- NOTE | 2018-07-11 12:30 | PN ---
Date of Progress Note: 07/11/2018 NEPHROLOGY FOLLOWUP Subjective: The patient is doing well. Physical Examination: Vital Signs: Blood pressure 109/56, pulse of 96. Chest: Clear to auscultation. Heart: S1 and S2, regular. Abdomen: Soft, nontender. Extremities: Dressing both legs. Laboratory Data: WBC 11.1, H and H of 12.5 and 38.3, platelets 218. Sodium 142, potassium 3.7, bica rb 19, BUN 88, creatinine 2.8, GFR down to 17, calcium 9.1, phosphorus 4.5, magnesium 2.3, and albumi n 1.6. Urinalysis; protein creatinine is 1. Vancomycin trough of 24. Rheumatoid factor being posit jennifer. HIV negative. Hepatitis is still pending. Current Medications: The patient on it includes, 1.Cefepime. 2.Levaquin 250. 3.Gabapentin. 4.Sodium bicarb drip. 5.Pepcid. 6.Insulin. 7.Hydrocodone. Assessment And Plan: 1.Acute kidney injury secondary to toxic acute tubular necrosis, poor perfusion acute tubular necros is, complicated with acidosis and hyperkalemia, nonoliguric, had good urine output of 500. I can go ahead and change IV fluid to normal saline and we will monitor the patient. 2.Acidosis secondary to renal failure. No need for IV bicarb. We will switch her to oral. 3.Chronic kidney disease with acute kidney injury, continues to worsen, multifactorial, prerenal, to xic acute tubular necrosis secondary to vancomycin, nonoliguric, as I mentioned, we will change to IV fluid. I had long discussion with the family that possible the patient may need renal replacement t herapy if kidney function continues to decline, family agreed. We will monitor. We will follow up t he rest of the serology as rheumatoid factor been positive for the time being and we will monitor. CARMEN/DIANE Voice ID: [id number] Report ID: [id number]
--- NOTE | 2018-07-11 12:53 | PN ---
Subjective: The patient is lying in bed, continuing to have discomfort in her legs. Surgical dressi ng is still on the legs. Objective: Vital Signs: Temperature 98, pulse 78, and respirations 16. Lungs: Basilar crackles. Heart: S1 and S2, regular. Abdomen: Soft, nontender. Bowel sounds present. Extremities: In the surgical dressing. Laboratory Data: Reviewed. Assessment And Plan: Bilateral lower extremity cellulitis, status post surgical debridement, diabete s mellitus, bilateral lower extremity wounds, status post debridement, morbid obesity, urinary tract infection with Escherichia coli. Continue antibiotic and wound care. We will follow the patient as needed. NF/MODL Voice ID: [id number] Report ID: [id number]
[2018-07-11] MEDS: Levofloxacin 250mg IV 250 MG/50 ML BAG IV SCH (13:00)
[2018-07-11] MEDS: SODIUM BICARB 325 MG TAB PO SCH ×2 (13:00→21:00)
[2018-07-11] MEDS: FAMOTIDINE 20 MG TAB PO SCH (16:52)
--- NOTE | 2018-07-11 17:50 | P.DS ---
Admission Date: 07/06/18 Discharge Date: 07/11/18 Primary Care Provider: edel Disposition: ROUTINE DISCHARGE Discharge Condition: GOOD Reason for Admission: cellulitis, acute renal failure, volume depletion Consultations: General Surgery and Nephrology - Problems (1) Cellulitis Onset Date: 07/09/18 Current Visit: Yes Status: Acute Qualifiers: Site of cellulitis: extremity Site of cellulitis of extremity: lower extremity Laterality: unspecified laterality Qualified Code(s): L03.119 - Cellulitis of unspecified part of limb (2) Acute renal injury Onset Date: 07/09/18 Current Visit: Yes Status: Acute (3) Diabetes mellitus Onset Date: 07/09/18 Current Visit: Yes Status: Chronic Qualifiers: Diabetes mellitus type: type 2 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 transplanted heart: [place] heart Associated angina: without angina Qualified Code(s): I25.10 - Atherosclerotic heart disease of [place] coronary artery without angina pectoris (5) Morbid obesity Onset Date: 07/09/18 Current Visit: Yes Status: Chronic (6) PAD (peripheral artery disease) Onset Date: 07/09/18 Current Visit: Yes Status: Chronic Brief History of Present Illness: Ms Schilling is a 67 years old woman with history of CAD, IDDM, chronic lower extremity edema, mostly bed bound, who start about 1 month ago with bilateral lower exrermity ulcerative wounds. Over the time, the wounds were getting larger and painfull. No history of fever or chills. Today, she was brought by her family because the pain was severe. She has yellowish secretion from the wounds, foul odor and bilateral erythema. Lab work shows normal WBC, elevated lactate and normal procalcitonin. Creatinine elevated, low sodium and hyperglycemia. No signs of DKA. Her potassium was elevated as well. Bilateral venous doppler shows no DVT. She is afebrile and hemodynamically stable. Hospital Course: Overall during the hospital stay patient main stable Patient was initially admitted to the hospital for bilateral lower leg cellulitis that had gotten progressively worse over 1 month. Patient initially was started on IV vancomycin and Zosyn here. General surgery was consulted for possible incision and drainage. General surgery recommended the patient be continued on IV antibiotics for 48hrs before surgical procedure due to extensive nature of the cellulitis and patient being high risk for surgery due to being on anti coagulation. Cardiology was consulted. Who provided cardiac clearance for incision and drainage. Patient was taken to the OR and had debridement of her wound bilaterally. Wounds are pretty extensive and thus required more than 1 hr wound care while here in the hospital. Wound culture was positive for Serratia however given the extensive nature of the wound it was decided the patient should be continued on To IV antibiotics. At that point patient had a referral placed to a long-term acute care facility next for continuation of her IV antibiotics for total of 4-6 weeks. Patient was accepted at transferred to the facility for further care. While here in the hospital patient also had an MRI of bilateral lower extremity to rule out osteomyelitis. MRI of bilateral lower extremity was negative for any osteomyelitis. The patient also had an arterial and venous Doppler to assess for DVT and PAD. Patient was negative for DVT and did have severe peripheral artery disease of bilateral lower ext. Patient was started on heparin on admission and was continued on it while here in the hospital except the day of this incision and drainage. Patient due to having chronic noncompliance with medication and medical treatment along with extensive chronic medical history higher risk for angiographically. Given her elevated creatinine and chronic kidney disease at this time cardiology advised for medical management versus angiographically of the foot. Once patient kidney condition gets back to baseline and her bilateral lower extremity cellulitis starts improving she can be referred to vascular surgery for treatment for PAD. Vital Signs/Physical Exam: Temp Pulse Resp BP Pulse Ox 97.2 F 99 H 17 106/59 L 96 07/11/18 16:00 07/11/18 16:00 07/11/18 16:00 07/11/18 16:00 07/11/18 16:00 General: Alert, In no apparent distress, Confused (intermittent) HEENT: Atraumatic, PERRLA, EOMI Neck: Supple, JVD not distended Respiratory: Normal air movement, Expiratory wheezes Cardiovascular: Regular rate/rhythm, Normal S1 S2 Gastrointestinal: Normal bowel sounds, No tenderness Musculoskeletal: Swelling, Erythema, Tenderness, Warmth Integumentary: No rashes Neurological: Normal speech, Normal tone, Normal affect Lymphatics: No axilla or inguinal lymphadenopathy Laboratory Data at Discharge: WBC 11.1 K/uL (4.3-10.9) H 07/11/18 03:47 Hgb 12.5 g/dL (12.0-15.0) 07/11/18 03:47 Hct 38.3 % (36.0-45.0) 07/11/18 03:47 Plt Count 218 K/uL (152-406) 07/11/18 03:47 PT 14.9 SECONDS (9.5-12.5) H 07/06/18 16:00 INR 1.26 07/06/18 16:00 Sodium 142 mmol/L (136-145) 07/11/18 03:47 Potassium 3.7 mmol/L (3.5-5.1) 07/11/18 03:47 BUN 88 mg/dL (7-18) H 07/11/18 03:47 Creatinine 2.81 mg/dL (0.55-1.3) H 07/11/18 03:47 Glucose 153 mg/dL (74-106) H 07/11/18 03:47 Phosphorus 4.5 mg/dL (2.5-4.9) 07/11/18 03:47 Magnesium 2.3 mg/dL (1.8-2.4) 07/11/18 03:47 Total Bilirubin 1.2 mg/dL (0.2-1.0) H 07/06/18 17:08 AST 26 U/L (15-37) 07/06/18 17:08 ALT 21 U/L (12-78) 07/06/18 17:08 Alkaline Phosphatase 166 U/L (45-117) H 07/06/18 17:08 Triglycerides 137 mg/dL (<150) 07/07/18 07:51 Cholesterol 135 mg/dL (<200) 07/07/18 07:51 HDL Cholesterol 27 mg/dL (40-60) L 07/07/18 07:51 Cholesterol/HDL Ratio 5.00 07/07/18 07:51 Home Medications: NK [No Home Meds] 07/10/18 Diet: Regular Activity: Ad migel
[2018-07-11 20:14] LABS: HBsAG Nonreactive (Nonreactive); Hepatitis A IgM Antibody Nonreactive
[2018-07-11] MEDS: INSULIN GLARGINE 100 UNITS/ML SQ SCH (21:00)
[2018-07-12 17:04] LABS: P-ANCA Anti-Myeloperoxidase Ab <1.0 AI (<1.0)
[2018-07-12 19:38] LABS: Albumin, (SPE) 2.7 g/dL (3.8-4.8); Alpha-1-Globulins 0.5 g/dL (0.2-0.3); Alpha-2-Globulins 0.9 g/dL (0.5-0.9); Gamma Globulins 1.6 g/dL (0.8-1.7); INTERPRETATION REPORT
== END 2018-07-11 21:39 | DRG 570 ==
LOC: ER 14:47 → ERHOLD 20:01 → 4TH 21:25
PROVIDERS: ADMIT Internal Medicine; ATTEND Family Medicine
PROC: B548ZZA Ultrasonography of Superior Vena Cava, Guidance (ICD-10-PCS; 2018-07-06)
PROC: 02HV33Z Insertion of Infusion Device into Superior Vena Cava, Percutaneous Approach (ICD-10-PCS; 2018-07-06)
PROC: 0JBN0ZZ Excision of Right Lower Leg Subcutaneous Tissue and Fascia, Open Approach (ICD-10-PCS; 2018-07-09)
PROC: 0JBP0ZZ Excision of Left Lower Leg Subcutaneous Tissue and Fascia, Open Approach (ICD-10-PCS; 2018-07-09)
PROC: 0JBQ0ZZ Excision of Right Foot Subcutaneous Tissue and Fascia, Open Approach (ICD-10-PCS; 2018-07-09)
PROC: 0JBR0ZZ Excision of Left Foot Subcutaneous Tissue and Fascia, Open Approach (ICD-10-PCS; principal; 2018-07-09 14:30)
DX: L03.116 Cellulitis of left lower limb (principal); A41.9 Sepsis, unspecified organism; N17.0 Acute kidney failure with tubular necrosis; N17.9 Acute kidney failure, unspecified; N39.0 Urinary tract infection, site not specified; E87.1 Hypo-osmolality and hyponatremia; L97.428 Non-pressure chronic ulcer of left heel and midfoot with other specified severity; L97.418 Non-pressure chronic ulcer of right heel and midfoot with other specified severity; L97.518 Non-pressure chronic ulcer of other part of right foot with other specified severity; L97.821 Non-pressure chronic ulcer of other part of left lower leg limited to breakdown of skin; L97.811 Non-pressure chronic ulcer of other part of right lower leg limited to breakdown of skin; L03.115 Cellulitis of right lower limb; B96.89 Other specified bacterial agents as the cause of diseases classified elsewhere; E11.622 Type 2 diabetes mellitus with other skin ulcer; Z79.4 Long term (current) use of insulin; I25.10 Atherosclerotic heart disease of native coronary artery without angina pectoris; E66.01 Morbid (severe) obesity due to excess calories; E11.51 Type 2 diabetes mellitus with diabetic peripheral angiopathy without gangrene; I25.2 Old myocardial infarction; E87.5 Hyperkalemia; E11.65 Type 2 diabetes mellitus with hyperglycemia; E80.6 Other disorders of bilirubin metabolism; K76.0 Fatty (change of) liver, not elsewhere classified; B18.2 Chronic viral hepatitis C; B96.20 Unspecified Escherichia coli [E. coli] as the cause of diseases classified elsewhere; E11.40 Type 2 diabetes mellitus with diabetic neuropathy, unspecified; L97.521 Non-pressure chronic ulcer of other part of left foot limited to breakdown of skin; I87.8 Other specified disorders of veins; E87.8 Other disorders of electrolyte and fluid balance, not elsewhere classified; E11.621 Type 2 diabetes mellitus with foot ulcer; I08.3 Combined rheumatic disorders of mitral, aortic and tricuspid valves; I35.0 Nonrheumatic aortic (valve) stenosis
CPT/HCPCS: 36415; 51702; 71045; 76000; 76705; 76770; 80048; 80061; 80069; 80074; 80076; 80202; 81003; 81015; 82435; 82550; 82570; 82962; 83036; 83520; 83605; 83735; 83880; 83935; 83970; 84132; 84145; 84156; 84165; 84300; 84439; 84443; 84484; 85025; 85610; 86021; 86038; 86160; 86225; 86235; 86430; 87040; 87070; 87077; 87086; 87088; 87186; 87205; 87389; 88304; 93005; 93306; 93925; 93970; 94760; 96361; 96365; 96366; 96375; 97110; 97163; 97530; 99285; J0692; J1170; J1642; J1644; J1940; J2175; J2250; J2405; J2543; J2704; J3010; J3370; J7030